=== PATIENT | male | born 1950 | race Caucasian/White ===

== ENCOUNTER 2022-12-26 18:32 | Inpatient (IN) | payer MEDICARE ==
[~2022-12-26] VITALS: Ht 165.1 cm; Wt 40.4 kg
[2022-12-26] MEDS ORDERED: IV NS 0.9% 1,000 ML BAG IV ONE ×2 (19:30→20:30)
[2022-12-26 20:09] LABS: SITE, VBG Other; VBG COHb 0.3 %; VBG MetHb 0.3 %; VBG O2Hb 51.2 %; VENT MODE, VBG ROOM AIR 21%
[2022-12-26 20:10] LABS: CALCIUM, SERUM 9.7 mg/dL (8.5-10.1); CARBON DIOXIDE 16 mmol/L (21-32); CHLORIDE 91 mmol/L (98-107); CREATININE 2.2 mg/dL (0.6-1.3); POTASSIUM 5.9 mmol/L (3.5-5.1); SODIUM SERUM 135 mmol/L (136-145); UREA NITROGEN, BLOOD 69 mg/dL (7-18)
[2022-12-26 20:13] LABS: GLUCOSE 1016 mg/dL (74-106)
[2022-12-26 20:26] LABS: ALANINE AMINOTRANSFERASE 13 U/L (12-78); ALBUMIN 3.1 g/dL (3.4-5.0); ALKALINE PHOSPHATASE 95 U/L (46-116); ASPARTATE AMINOTRANSFERASE 11 U/L (15-37); BILIRUBIN,DIRECT 0.3 mg/dL (0.0-0.2); BILIRUBIN,TOTAL 0.7 mg/dL (0.2-1.0); TOTAL PROTEIN, SERUM 7.5 g/dL (6.4-8.2)
[2022-12-26] MEDS ORDERED: INSULIN REGULAR, HUMAN 100 UNITS in IV NS 0.9% 100 ML IV PRN ×2 (20:30)
[2022-12-26] MEDS ORDERED: IV NS 0.9% 1,000 ML IV PRN (20:30)
[2022-12-26] MEDS ORDERED: INSULIN REGULAR, HUMAN 100 UNIT/ML 10 ML VIAL ONE (20:30)
[2022-12-26 20:42] LABS: BASOPHILS % (AUTO) 0.2 % (0.0-2.0); HEMATOCRIT 41 % (39-51); HEMOGLOBIN 12.4 g/dL (13.5-17.5); LYMPHOCYTES # (AUTO) 0.4 K/uL (0.8-4.8); LYMPHOCYTES % (AUTO) 2.2 % (20.0-44.0); MEAN CORPUSCULAR HGB CONC 31 g/dl (31.0-36.0); MEAN CORPUSCULAR VOLUME 94 fL (80-96); MONOCYTES # (AUTO) 1.4 K/uL (0.1-1.30); MONOCYTES % (AUTO) 7.5 % (2.0-12.0); NEUTROPHILS # (AUTO) 17.4 K/uL (1.8-8.9); NEUTROPHILS % (AUTO) 90.1 % (43.0-81.0); PLATELET COUNT (AUTO) 398 K/uL (150-450); RED BLOOD CELL COUNT(AUTO) 4.34 MIL/uL (4.5-6.0); WHITE BLOOD COUNT (AUTO) 19.3 K/uL (4.3-11.0)
[2022-12-26 21:41] LABS: CARBON DIOXIDE 14 mmol/L (21-32); CHLORIDE 96 mmol/L (98-107); CREATININE 2.1 mg/dL (0.6-1.3); MAGNESIUM 3.5 mg/dL (1.8-2.4); POTASSIUM 5.3 mmol/L (3.5-5.1); SODIUM SERUM 136 mmol/L (136-145); UREA NITROGEN, BLOOD 69 mg/dL (7-18)
[2022-12-26 22:05] LABS: GLUCOSE 962 mg/dL (74-106); PHOSPHORUS 8.8 mg/dL (2.5-4.9)
[2022-12-26] MEDS ORDERED: MAG HYDROX/AL HYDROX/SIMETH 30 ML UDC PO PRN (23:30)
[2022-12-26] MEDS ORDERED: ONDANSETRON HCL/PF 4 MG/2 ML VIAL IVP PRN (23:30)
[2022-12-26] MEDS ORDERED: IV 1/2NS 1000 ML 1,000 ML IV PRN (23:30)
[2022-12-26] MEDS ORDERED: Z GUARD REMEDY 4 OZ OINT TP PRN (23:30)
[2022-12-26] MEDS ORDERED: MAGNESIUM HYDROXIDE 30 ML UDC PO PRN (23:30)
[2022-12-26] MEDS ORDERED: ACETAMINOPHEN 325 MG TABLET PO PRN (23:30)
[2022-12-26] MEDS ORDERED: ZOLPIDEM TARTRATE 5 MG TABLET PO PRN (23:30)
[2022-12-26 23:59] LABS: BILIRUBIN,URINE NEGATIVE (NEGATIVE); COLOR,URINE YELLOW (YELLOW); LEUKOCYTE ESTERASE ,URINE NEGATIVE (NEGATIVE); NITRITE, URINE NEGATIVE (NEGATIVE); PROTEIN,URINE NEGATIVE (NEGATIVE); UGLUCOSE 3+ mg/dL (NEGATIVE); UROBILINOGEN,URINE 0.2 EU/dL (0.2)
[2022-12-26 23:59] LABS: CALCIUM, SERUM 8.8 mg/dL (8.5-10.1); CARBON DIOXIDE 18 mmol/L (21-32); CHLORIDE 105 mmol/L (98-107); CREATININE 2.1 mg/dL (0.6-1.3); MAGNESIUM 3.1 mg/dL (1.8-2.4); PHOSPHORUS 6.2 mg/dL (2.5-4.9); POTASSIUM 4.4 mmol/L (3.5-5.1); SODIUM SERUM 145 mmol/L (136-145); UREA NITROGEN, BLOOD 68 mg/dL (7-18)
[2022-12-27] VITALS (26 sets, daily range): BP systolic 81–129; BP diastolic 33–69
[2022-12-27] MEDS ORDERED: BLOOD SUGAR DIAGNOSTIC 1 EACH STRIP IN SCH
[2022-12-27 00:06] LABS: GLUCOSE 578 mg/dL (74-106)
[2022-12-27 00:07] LABS: WBC,URINE 0-2 /HPF (0-3)
[2022-12-27 00:08] LABS: BACTERIA,URINE Many /HPF (None Seen); SQUAMOUS EPITHELIAL CELL,UR Few /HPF (None Seen); YEAST,URINE Few /HPF (None Seen)
[2022-12-27] MEDS: ENOXAPARIN SODIUM 30 MG/0.3 ML DISP.SYRIN SQ SCH ×2 (00:11→21:21)
[2022-12-27] MEDS: BLOOD SUGAR DIAGNOSTIC 1 EACH STRIP IN SCH ×6 (00:15→06:22)
[2022-12-27] MEDS ORDERED: LEVOFLOXACIN 500 MG /D5W 100ML 500 MG in PREMIX 1 EA IV ONE (00:30)
[2022-12-27] MEDS ORDERED: INSULIN REGULAR, HUMAN 100 UNIT in IV NS 0.9% 99 ML IV PRN ×2 (00:30)
[2022-12-27] MEDS ORDERED: LEVOFLOXACIN 500 MG /D5W 100ML 100 ML IV ONE (00:33)
[2022-12-27 04:53] LABS: CALCIUM, SERUM 8.7 mg/dL (8.5-10.1); CARBON DIOXIDE 20 mmol/L (21-32); CHLORIDE 111 mmol/L (98-107); GLUCOSE 171 mg/dL (74-106); SODIUM SERUM 148 mmol/L (136-145)
[2022-12-27 04:54] LABS: CREATININE 1.9 mg/dL (0.6-1.3); UREA NITROGEN, BLOOD 68 mg/dL (7-18)
[2022-12-27 04:56] LABS: BASOPHILS # (AUTO) 0.2 K/uL (0.0-0.2); BASOPHILS % (AUTO) 1.1 % (0.0-2.0); HEMATOCRIT 33 % (39-51); LYMPHOCYTES # (AUTO) 0.6 K/uL (0.8-4.8); MEAN CORPUSCULAR HGB CONC 33 g/dl (31.0-36.0); MEAN CORPUSCULAR VOLUME 87 fL (80-96); MONOCYTES # (AUTO) 1.5 K/uL (0.1-1.30); MONOCYTES % (AUTO) 10.6 % (2.0-12.0); NEUTROPHILS # (AUTO) 12.1 K/uL (1.8-8.9); NEUTROPHILS % (AUTO) 84.3 % (43.0-81.0); PLATELET COUNT (AUTO) 348 K/uL (150-450); RED BLOOD CELL COUNT(AUTO) 3.77 MIL/uL (4.5-6.0); WHITE BLOOD COUNT (AUTO) 14.4 K/uL (4.3-11.0)
[2022-12-27 05:14] LABS: CALCIUM, SERUM 8.7 mg/dL (8.5-10.1); CARBON DIOXIDE 26 mmol/L (21-32); CHLORIDE 112 mmol/L (98-107); CREATININE 1.7 mg/dL (0.6-1.3); GLUCOSE 129 mg/dL (74-106); MAGNESIUM 2.7 mg/dL (1.8-2.4); PHOSPHORUS 4.2 mg/dL (2.5-4.9); POTASSIUM 4.4 mmol/L (3.5-5.1); SODIUM SERUM 146 mmol/L (136-145); UREA NITROGEN, BLOOD 71 mg/dL (7-18)
[2022-12-27 05:25] LABS: THYROID STIMULATING HORMONE 0.455 uIU/mL (0.358-3.74)
[2022-12-27] MEDS ORDERED: IV D5/0.45 NACL 1,000 ML IV PRN (05:30)
[2022-12-27] MEDS ORDERED: DEXTROSE 50%-WATER 50 ML DISP.SYRIN IV PRN (07:00)
[2022-12-27] MEDS ORDERED: *INSULIN REGULAR(HUMULIN R)HUM 100 UNIT/ML VIAL SQ PRN (07:00)
[2022-12-27] MEDS ORDERED: INSULIN GLARGINE, 100 UNIT/ML CARTRIDGE SQ ONE (07:30)
[2022-12-27] MEDS: BLOOD SUGAR DIAGNOSTIC 1 EACH STRIP VI SCH ×4 (08:53→22:26)
[2022-12-27] MEDS: CLOTRIMAZOLE 1% 15 GM TUBE TP SCH ×2 (08:59→17:32)
[2022-12-27] MEDS: INSULIN REGULAR, HUMAN 100 UNIT/ML 3 ML VIAL SQ PRN ×3 (09:00→16:46)
[2022-12-27] MEDS: PANTOPRAZOLE 40 MG TABLET.DR PO SCH (09:10)
[2022-12-27] MEDS: IV NS 0.9% 1,000 ML IV SCH (11:47)
[2022-12-27] MEDS: GLUCERNA SHAKE 237 ML CAN PO SCH ×2 (12:41→17:31)
[2022-12-27] MEDS: PROSOURCE / PROSTAT (PYXIS) 30 ML UDC PO SCH (17:31)
[2022-12-27] MEDS ORDERED: LEVOFLOXACIN 250 MG /D5W 50 ML 50 ML IV ONE (23:36)
[2022-12-27] MEDS: LEVOFLOXACIN 250 MG /D5W 50 ML 250 MG in PREMIX 1 EA IV SCH (23:37)
[2022-12-28] MEDS: IV NS 0.9% 1,000 ML IV SCH ×2 (00:48→15:25)
[2022-12-28 02:00] VITALS: BP 114/62
[2022-12-28 02:24] LABS: CALCIUM, SERUM 8.4 mg/dL (8.5-10.1); CARBON DIOXIDE 26 mmol/L (21-32); CHLORIDE 114 mmol/L (98-107); CREATININE 0.9 mg/dL (0.6-1.3); GLUCOSE 137 mg/dL (74-106); POTASSIUM 3.3 mmol/L (3.5-5.1); SODIUM SERUM 145 mmol/L (136-145); UREA NITROGEN, BLOOD 47 mg/dL (7-18)
[2022-12-28 04:00] VITALS: BP 120/62
[2022-12-28 07:06] LABS: BASOPHILS % (AUTO) 0.2 % (0.0-2.0); EOSINOPHILS % (AUTO) 0.2 % (0.0-6.0); HEMATOCRIT 33 % (39-51); LYMPHOCYTES # (AUTO) 0.5 K/uL (0.8-4.8); LYMPHOCYTES % (AUTO) 3.5 % (20.0-44.0); MEAN CORPUSCULAR HGB CONC 33 g/dl (31.0-36.0); MEAN CORPUSCULAR VOLUME 87 fL (80-96); MONOCYTES % (AUTO) 6.6 % (2.0-12.0); NEUTROPHILS # (AUTO) 13.5 K/uL (1.8-8.9); NEUTROPHILS % (AUTO) 89.5 % (43.0-81.0); PLATELET COUNT (AUTO) 273 K/uL (150-450); RED BLOOD CELL COUNT(AUTO) 3.82 MIL/uL (4.5-6.0); WHITE BLOOD COUNT (AUTO) 15.1 K/uL (4.3-11.0)
[2022-12-28 07:12] LABS: MAGNESIUM 2.2 mg/dL (1.8-2.4); PHOSPHORUS 2.5 mg/dL (2.5-4.9)
[2022-12-28] MEDS ORDERED: POTASSIUM CHLORIDE 20 MEQ TAB.PRT.SR PO ONE (07:30)
[2022-12-28 08:00] VITALS: BP 146/81
[2022-12-28] MEDS: PROSOURCE / PROSTAT (PYXIS) 30 ML UDC PO SCH ×2 (09:33→16:59)
[2022-12-28] MEDS: PANTOPRAZOLE 40 MG TABLET.DR PO SCH (09:33)
[2022-12-28] MEDS: BLOOD SUGAR DIAGNOSTIC 1 EACH STRIP VI SCH ×4 (09:33→21:38)
[2022-12-28] MEDS: ARGININE/GLUTAMINE/CALCIUM BMB 1 EACH POWD.PACK PO SCH (09:33)
[2022-12-28] MEDS: METFORMIN 500 MG TABLET PO SCH ×2 (09:34→16:59)
[2022-12-28] MEDS: GLUCERNA SHAKE 237 ML CAN PO SCH ×3 (09:36→17:47)
[2022-12-28] MEDS: CLOTRIMAZOLE 1% 15 GM TUBE TP SCH ×2 (09:36→17:47)
[2022-12-28] MEDS: INSULIN REGULAR, HUMAN 100 UNIT/ML 3 ML VIAL SQ PRN ×3 (11:47→21:36)
[2022-12-28 12:00] VITALS: BP 140/53
[2022-12-28 16:00] VITALS: BP 110/60
[2022-12-28 20:00] VITALS: BP 123/64
[2022-12-28] MEDS: ENOXAPARIN SODIUM 30 MG/0.3 ML DISP.SYRIN SQ SCH (21:36)
[2022-12-28] MEDS: LEVOFLOXACIN 250 MG /D5W 50 ML 250 MG in PREMIX 1 EA IV SCH (23:48)
[2022-12-29] VITALS: BP 112/72
[2022-12-29 00:11] LABS: BASOPHILS % (MANUAL) 0 % (0.0-2.0); EOSINOPHILS % (MANUAL) 0 % (0-4); LYMPHOCYTES % (MANUAL) 5 % (16-48); MONOCYTES % (MANUAL) 9 % (0-11.0); NEUTROPHILS % (MANUAL) 86 (42-76)
[2022-12-29 02:20] LABS: CALCIUM, SERUM 7.3 mg/dL (8.5-10.1); CARBON DIOXIDE 29 mmol/L (21-32); CHLORIDE 106 mmol/L (98-107); GLUCOSE 198 mg/dL (74-106); POTASSIUM 3.5 mmol/L (3.5-5.1); SODIUM SERUM 142 mmol/L (136-145)
[2022-12-29 02:21] LABS: UREA NITROGEN, BLOOD 81 mg/dL (7-18)
[2022-12-29] MEDS: IV NS 0.9% 1,000 ML IV SCH ×2 (03:34→17:40)
[2022-12-29 04:00] VITALS: BP 131/72
[2022-12-29 07:41] LABS: BASOPHILS # (AUTO) 0.2 K/uL (0.0-0.2); BASOPHILS % (AUTO) 1.2 % (0.0-2.0); EOSINOPHILS % (AUTO) 0.2 % (0.0-6.0); HEMATOCRIT 31 % (39-51); HEMOGLOBIN 10.1 g/dL (13.5-17.5); LYMPHOCYTES # (AUTO) 0.7 K/uL (0.8-4.8); LYMPHOCYTES % (AUTO) 4.3 % (20.0-44.0); MEAN CORPUSCULAR HGB CONC 33 g/dl (31.0-36.0); MEAN CORPUSCULAR VOLUME 88 fL (80-96); MONOCYTES # (AUTO) 0.8 K/uL (0.1-1.30); MONOCYTES % (AUTO) 5.5 % (2.0-12.0); NEUTROPHILS # (AUTO) 13.4 K/uL (1.8-8.9); NEUTROPHILS % (AUTO) 88.8 % (43.0-81.0); PLATELET COUNT (AUTO) 208 K/uL (150-450); RED BLOOD CELL COUNT(AUTO) 3.52 MIL/uL (4.5-6.0); WHITE BLOOD COUNT (AUTO) 15.2 K/uL (4.3-11.0)
[2022-12-29 07:55] LABS: CALCIUM, SERUM 8.3 mg/dL (8.5-10.1); CARBON DIOXIDE 27 mmol/L (21-32); CHLORIDE 111 mmol/L (98-107); CREATININE 0.8 mg/dL (0.6-1.3); GLUCOSE 217 mg/dL (74-106); MAGNESIUM 1.9 mg/dL (1.8-2.4); PHOSPHORUS 1.9 mg/dL (2.5-4.9); POTASSIUM 3.4 mmol/L (3.5-5.1); SODIUM SERUM 145 mmol/L (136-145); UREA NITROGEN, BLOOD 30 mg/dL (7-18)
[2022-12-29 08:00] VITALS: BP 128/70
[2022-12-29] MEDS: GLUCERNA SHAKE 237 ML CAN PO SCH ×3 (08:52→17:38)
[2022-12-29] MEDS: PROSOURCE / PROSTAT (PYXIS) 30 ML UDC PO SCH ×2 (08:52→17:38)
[2022-12-29] MEDS: PANTOPRAZOLE 40 MG TABLET.DR PO SCH (08:52)
[2022-12-29] MEDS: BLOOD SUGAR DIAGNOSTIC 1 EACH STRIP VI SCH ×4 (08:52→22:40)
[2022-12-29] MEDS: CLOTRIMAZOLE 1% 15 GM TUBE TP SCH ×2 (08:53→17:38)
[2022-12-29] MEDS: ARGININE/GLUTAMINE/CALCIUM BMB 1 EACH POWD.PACK PO SCH (09:40)
[2022-12-29] MEDS: INSULIN REGULAR, HUMAN 100 UNIT/ML 3 ML VIAL SQ PRN ×3 (09:42→17:41)
[2022-12-29 12:00] VITALS: BP 111/91
[2022-12-29] MEDS ORDERED: POTASSIUM CHLORIDE 20 MEQ TAB.PRT.SR PO SCH (12:30)
[2022-12-29 16:00] VITALS: BP 103/48
[2022-12-29] MEDS ORDERED: K PHOS NEUTRAL 250 MG TABLET PO ONE (17:00)
[2022-12-29] MEDS: METFORMIN 500 MG TABLET PO SCH (17:38)
[2022-12-29 20:00] VITALS: BP 98/50
[2022-12-29] MEDS: ENOXAPARIN SODIUM 30 MG/0.3 ML DISP.SYRIN SQ SCH (21:29)
[2022-12-29] MEDS: LEVOFLOXACIN 250 MG /D5W 50 ML 250 MG in PREMIX 1 EA IV SCH (23:00)
[2022-12-30] VITALS: BP 114/67
[2022-12-30 02:38] LABS: CALCIUM, SERUM 8.2 mg/dL (8.5-10.1); CARBON DIOXIDE 28 mmol/L (21-32); CHLORIDE 112 mmol/L (98-107); GLUCOSE 253 mg/dL (74-106); POTASSIUM 3.4 mmol/L (3.5-5.1); SODIUM SERUM 143 mmol/L (136-145); UREA NITROGEN, BLOOD 35 mg/dL (7-18)
[2022-12-30 04:00] VITALS: BP 112/70
[2022-12-30] MEDS: IV NS 0.9% 1,000 ML IV SCH (07:02)
[2022-12-30 07:09] LABS: BASOPHILS % (AUTO) 0.2 % (0.0-2.0); EOSINOPHILS % (AUTO) 0.4 % (0.0-6.0); HEMATOCRIT 35 % (39-51); HEMOGLOBIN 11.2 g/dL (13.5-17.5); LYMPHOCYTES # (AUTO) 0.7 K/uL (0.8-4.8); LYMPHOCYTES % (AUTO) 4.6 % (20.0-44.0); MEAN CORPUSCULAR HGB CONC 32 g/dl (31.0-36.0); MEAN CORPUSCULAR VOLUME 88 fL (80-96); MONOCYTES # (AUTO) 1.1 K/uL (0.1-1.30); MONOCYTES % (AUTO) 7.2 % (2.0-12.0); NEUTROPHILS # (AUTO) 13.2 K/uL (1.8-8.9); NEUTROPHILS % (AUTO) 87.6 % (43.0-81.0); PLATELET COUNT (AUTO) 231 K/uL (150-450); RED BLOOD CELL COUNT(AUTO) 3.93 MIL/uL (4.5-6.0); WHITE BLOOD COUNT (AUTO) 15.1 K/uL (4.3-11.0)
[2022-12-30] MEDS: BLOOD SUGAR DIAGNOSTIC 1 EACH STRIP VI SCH ×2 (07:37→11:48)
[2022-12-30] MEDS: INSULIN REGULAR, HUMAN 100 UNIT/ML 3 ML VIAL SQ PRN ×2 (07:40→11:50)
[2022-12-30] MEDS: PANTOPRAZOLE 40 MG TABLET.DR PO SCH (07:42)
[2022-12-30 07:45] LABS: PHOSPHORUS 2.1 mg/dL (2.5-4.9)
[2022-12-30] MEDS: GLUCERNA SHAKE 237 ML CAN PO SCH ×2 (07:49→12:42)
[2022-12-30 08:00] VITALS: BP 117/70
[2022-12-30] MEDS: METFORMIN 500 MG TABLET PO SCH (08:59)
[2022-12-30] MEDS: CLOTRIMAZOLE 1% 15 GM TUBE TP SCH (09:00)
[2022-12-30] MEDS: PROSOURCE / PROSTAT (PYXIS) 30 ML UDC PO SCH (09:00)
[2022-12-30] MEDS: POTASSIUM PHOSPHATE MM 7.5 MMOL in IV NS 0.9% 100 ML IV SCH ×2 (09:08→12:13)
[2022-12-30] MEDS: ARGININE/GLUTAMINE/CALCIUM BMB 1 EACH POWD.PACK PO SCH (09:56)
[2022-12-30] MEDS ORDERED: LEVO500T90 PO (11:45)
[2022-12-30] MEDS ORDERED: INSU100V28 SQ (11:45)
[2022-12-30 12:00] VITALS: BP 125/75
== END 2022-12-30 15:24 | DRG 637 ==
LOC: ER 18:35 → ICU 21:11 → TELE1 12-27 13:26
PROVIDERS: ADMIT Student in an Organized Health Care Education/Training Program; ATTEND Internal Medicine
PROC: 05H533Z Insertion of Infusion Device into Right Subclavian Vein, Percutaneous Approach (ICD-10-PCS; principal; 2022-12-27)
PROC: B546ZZA Ultrasonography of Right Subclavian Vein, Guidance (ICD-10-PCS; 2022-12-27)
DX: E11.10 Type 2 diabetes mellitus with ketoacidosis without coma (principal); A41.9 Sepsis, unspecified organism; N17.0 Acute kidney failure with tubular necrosis; E44.0 Moderate protein-calorie malnutrition; L03.115 Cellulitis of right lower limb; E87.20 Acidosis, unspecified; Z68.1 Body mass index [BMI] 19.9 or less, adult; E87.1 Hypo-osmolality and hyponatremia; E87.5 Hyperkalemia; D64.9 Anemia, unspecified; E87.6 Hypokalemia; R53.1 Weakness; S90.01XA Contusion of right ankle, initial encounter; X58.XXXA Exposure to other specified factors, initial encounter; Y93.9 Activity, unspecified; Y92.009 Unspecified place in unspecified non-institutional (private) residence as the place of occurrence of the external cause
CPT/HCPCS: 36410; 36415; 71045-TC; 76770-TC; 80048-TC; 80076-TC; 81001; 82803-TC; 82962-TC; 83605-TC; 83735-TC; 84100-TC; 84443-TC; 85025-TC; 87081-TC; 87086-TC; 92526; 92611-TC; 97112-TC; 97116-TC; 97530-TC; A4216; A4223; G0378; J1650; J1815; J1956; J3490; J7030

== ENCOUNTER 2023-04-20 20:57 | Inpatient (IN) | payer MEDICARE ==
[~2023-04-20] VITALS: Ht 167.6 cm; Wt 49.0 kg
[~2023-04-20 20:57] MED LIST: INSU100V28 SQ; LEVO500T90 PO
--- NOTE | 2023-04-20 21:07 | NUR ---
[id number] FROM [facility] C/O AMS X1 DAY. BS CHECK READING "HI". UPON TRIAGE SATTING 90% 10LPM NRB. PLACED ON BED, VITALS CHECKED. IVF INFUSING TO PERIPHERAL IV TO LEFT WRIST UPON ARRIVAL.
--- NOTE | 2023-04-20 21:15 | NUR ---
20GA TO RIGHT FOREARM ESTABLISHED; BLOOD CULTURE COLLECTED
--- NOTE | 2023-04-20 21:35 | NUR ---
URINE COLLECTED, SENT TO LAB
--- NOTE | 2023-04-20 21:45 | NUR ---
GLUE MACHINE OPERATOR AT BEDSIDE
--- NOTE | 2023-04-20 21:52 | NUR ---
PATIENT TAKEN TO CT W/ RT & TECH
[2023-04-20 22:02] LABS: BASOPHILS % (AUTO) 0.1 % (0.0-2.0); HEMATOCRIT 32 % (39-51); HEMOGLOBIN 9.8 g/dL (13.5-17.5); LYMPHOCYTES # (AUTO) 0.5 K/uL (0.8-4.8); LYMPHOCYTES % (AUTO) 3.4 % (20.0-44.0); MEAN CORPUSCULAR HGB CONC 31 g/dl (31.0-36.0); MEAN CORPUSCULAR VOLUME 86 fL (80-96); MONOCYTES # (AUTO) 0.5 K/uL (0.1-1.30); MONOCYTES % (AUTO) 3.5 % (2.0-12.0); NEUTROPHILS # (AUTO) 14.5 K/uL (1.8-8.9); PLATELET COUNT (AUTO) 340 K/uL (150-450); RED BLOOD CELL COUNT(AUTO) 3.67 MIL/uL (4.5-6.0); WHITE BLOOD COUNT (AUTO) 15.6 K/uL (4.3-11.0)
[2023-04-20 22:11] LABS: BILIRUBIN,URINE 1+ (NEGATIVE); COLOR,URINE YELLOW (YELLOW); LEUKOCYTE ESTERASE ,URINE 3+ (NEGATIVE); NITRITE, URINE NEGATIVE (NEGATIVE); PROTEIN,URINE 2+ mg/dl (NEGATIVE); UGLUCOSE TRACE mg/dL (NEGATIVE)
[2023-04-20 22:37] LABS: ALANINE AMINOTRANSFERASE 13 U/L (12-78); ALBUMIN 1.6 g/dL (3.4-5.0); ALKALINE PHOSPHATASE 55 U/L (46-116); ASPARTATE AMINOTRANSFERASE 21 U/L (15-37); BILIRUBIN,DIRECT 0.2 mg/dL (0.0-0.2); CREATININE 2.8 mg/dL (0.6-1.3); TOTAL PROTEIN, SERUM 7.5 g/dL (6.4-8.2)
--- NOTE | 2023-04-20 22:45 | NUR ---
COVID, MRSA SWABS DONE, SENT TO LAB
--- NOTE | 2023-04-20 22:46 | NUR ---
POC [id number]
[2023-04-20 22:50] LABS: BACTERIA,URINE Rare /HPF (None Seen); SQUAMOUS EPITHELIAL CELL,UR Rare /HPF (None Seen); WBC,URINE 81-100 /HPF (0-3)
[2023-04-20 22:51] LABS: YEAST,URINE Moderate /HPF (None Seen)
[2023-04-20] MEDS ORDERED: AZITHROMYCIN 500 MG in IV D5W 250 ML IV ONE (23:00)
[2023-04-20] MEDS ORDERED: CEFTRIAXONE 1GM BAG (ER ONLY) 50 ML IV ONE (23:00)
[2023-04-20] MEDS ORDERED: INSULIN REGULAR, HUMAN 100 UNIT/ML 10 ML VIAL SQ ONE (23:00)
[2023-04-20] MEDS ORDERED: INSULIN REGULAR, HUMAN 100 UNIT/ML 10 ML VIAL ONE (23:00)
[2023-04-20] MEDS ORDERED: IV NS 0.9% 1,000 ML BAG IV ONE (23:00)
[2023-04-20] MEDS ORDERED: AZITHROMYCIN 500 MG VIAL ONE (23:00)
[2023-04-20] MEDS ORDERED: CEFTRIAXONE 1GM BAG (ER ONLY) 1 GM/50 ML PIGGYBACK IV ONE (23:00)
--- NOTE | 2023-04-20 23:07 | NUR ---
TROPONIN [address] JACOME DO AWARE.
[2023-04-20 23:19] LABS: ABG BASE EXCESS -2.9 mmol/L; ABG PCO2 31.6 mmHg (35.0-45.0); ABG PH 7.432 (7.350-7.450); ABG PO2 123.1 mmHg (75.0-100.0); COHb 0.3 % (0.5-1.5); MetHb 0.1 % (0.0-1.5); O2Hb 97.8 % (94.0-97.0); SITE, ABG Left Brachial
[2023-04-20 23:25] LABS: BILIRUBIN,TOTAL 0.4 mg/dL (0.2-1.0); CALCIUM, SERUM 8.7 mg/dL (8.5-10.1); CARBON DIOXIDE 22 mmol/L (21-32); CHLORIDE 102 mmol/L (98-107); POTASSIUM 5.3 mmol/L (3.5-5.1); SODIUM SERUM 137 mmol/L (136-145)
[2023-04-20 23:26] LABS: UREA NITROGEN, BLOOD 80 mg/dL (7-18)
[2023-04-20 23:27] LABS: GLUCOSE 740 mg/dL (74-106)
--- NOTE | 2023-04-20 23:27 | NUR ---
GLUCOSE 740 DR JACOME DO AWARE
[2023-04-20] MEDS ORDERED: ASPIRIN 300 MG/SUPP.RECT RC ONE (23:30)
[2023-04-21] VITALS (21 sets, daily range): BP systolic 94–131; BP diastolic 52–77; TEMP 97.1–98.5
[2023-04-21] MEDS ORDERED: ASPIRIN 300 MG/SUPP.RECT RC ONE (00:56)
[2023-04-21] MEDS ORDERED: DEXTROSE 50%-WATER 50 ML DISP.SYRIN IV PRN ×2 (01:00→09:00)
[2023-04-21] MEDS ORDERED: HYDROCODONE/APAP 5/325MG TABLET PO PRN (01:00)
[2023-04-21] MEDS ORDERED: MAG HYDROX/AL HYDROX/SIMETH 30 ML UDC PO PRN (01:00)
[2023-04-21] MEDS ORDERED: AZITHROMYCIN 500 MG in IV D5W 250 ML IV SCH ×3 (01:00→21:00)
[2023-04-21] MEDS ORDERED: Z GUARD REMEDY 4 OZ OINT TP PRN (01:00)
[2023-04-21] MEDS ORDERED: MORPHINE SULFATE INJ 2 MG/ML DISP.SYRIN IV PRN (01:00)
[2023-04-21] MEDS ORDERED: INSULIN REGULAR, HUMAN 100 UNIT/ML 3 ML VIAL SQ PRN (01:00)
[2023-04-21] MEDS ORDERED: *INSULIN REGULAR(HUMULIN R)HUM 100 UNIT/ML VIAL SQ PRN (01:00)
[2023-04-21] MEDS ORDERED: MAGNESIUM HYDROXIDE 30 ML UDC PO PRN (01:00)
[2023-04-21] MEDS ORDERED: ONDANSETRON HCL/PF 4 MG/2 ML VIAL IVP PRN (01:00)
--- NOTE | 2023-04-21 01:19 | NUR ---
US TECH AT PT'S BEDSIDE
--- NOTE | 2023-04-21 01:50 | NUR ---
REPORT GIVEN TO KAY BEVERLY
[2023-04-21] MEDS ORDERED: PHENYLEPHRINE 50 MG in IV NS 0.9% 245 ML IV PRN (03:00)
[2023-04-21] MEDS: IV NS 0.9% 1,000 ML IV PRN ×3 (04:27→22:35)
--- NOTE | 2023-04-21 04:29 | NUR ---
ADMISSION. RECEIVED THE PT FROM ER VIA GURNEY. PT IS AWAKE, DOES NOT FOLLOW COMMANDS, OXYGEN NON REBREATHER, SAT 98%, NO ACUTE DISTRESS NOTED, LIFE SKILLS CONSULTANT SHOWING S TACH, HOB ELEVATED. IV RT AND LT HAND. IVF NS 100 ML/H. FC PATENT. SACRAL WOUND, DIONI HEEL DTI NOTED. PICTURE TAKEN. WOUND CONSULTATION ORDERED
[2023-04-21] MEDS ORDERED: BLOOD SUGAR DIAGNOSTIC 1 EACH STRIP VI SCH (07:30)
--- NOTE | 2023-04-21 07:30 | NUR ---
FOOD AND BEVERAGE ASSISTANT MANAGER NOTE Patient is resting in bed. GCS E3V1M5, bilateral pupils 3mm PEARLA. tumbler plater showed ST HR 110/min, MAP>65mmHg with SBP~110mmHg. SpO2 100% with 100% oxygen. Will try titrate down oxygen use. Villagran is in-situ, but there's no urine output. Afebrile. Bilateral arms IV sites are dry and intact, with NS running at 100mL/hr via right FA. Will keep monitoring and care.
[2023-04-21] MEDS: ASPIRIN 81 MG TAB.CHEW PO SCH (08:46)
[2023-04-21] MEDS: PANTOPRAZOLE 40 MG TABLET.DR PO SCH (08:46)
[2023-04-21] MEDS: CEFEPIME 1 GM in IV D5W 50 ML IV SCH ×2 (08:48→20:30)
[2023-04-21] MEDS: HEPARIN SODIUM, PORCINE 5000 UNITS/1 ML VIAL SQ SCH ×2 (08:53→21:10)
--- NOTE | 2023-04-21 09:01 | NUR ---
RAW CHEESE WORKER NOTE - keep patient NPO As patient is not alert, will keep patient NPO.
[2023-04-21] MEDS: INSULIN REGULAR, HUMAN 100 UNIT/ML 3 ML VIAL SQ PRN ×2 (09:10→12:11)
[2023-04-21 09:12] LABS: ABG BASE EXCESS -1.5 mmol/L; ABG OXYGEN SATURATION 96.4 % (92.0-98.5); ABG PCO2 35.7 mmHg (35.0-45.0); ABG PH 7.419 (7.350-7.450); ABG PO2 88.6 mmHg (75.0-100.0); AaDO2 191.6 mmHg; COHb 0.1 % (0.5-1.5); MetHb 0.3 % (0.0-1.5); SITE, ABG Right Radial; VENT MODE, BG simple mask
[2023-04-21] MEDS ORDERED: VANCOMYCIN 1 GM in IV D5W 250 ML IV ONE (10:00)
[2023-04-21] MEDS: IV NS 0.9% 250 ML IV PRN (11:32)
[2023-04-21] MEDS: BLOOD SUGAR DIAGNOSTIC 1 EACH STRIP IN SCH ×3 (12:07→23:04)
[2023-04-21 12:56] LABS: CALCIUM, SERUM 8.2 mg/dL (8.5-10.1); CARBON DIOXIDE 22 mmol/L (21-32); CHLORIDE 109 mmol/L (98-107); CREATININE 2.4 mg/dL (0.6-1.3); GLUCOSE 343 mg/dL (74-106); POTASSIUM 4.4 mmol/L (3.5-5.1); SODIUM SERUM 143 mmol/L (136-145)
[2023-04-21 13:05] LABS: UREA NITROGEN, BLOOD 80 mg/dL (7-18)
[2023-04-21] MEDS: IPRATROPIUM NEB FS 0.5 MG/2.5 ML AMPUL.NEB NEB SCH ×2 (14:09→19:40)
[2023-04-21] MEDS: ALBUTEROL HALF STRENGTH 1.25 MG/3 ML VIAL.NEB NEB SCH ×2 (14:09→19:40)
--- NOTE | 2023-04-21 15:40 | NUR ---
ROUTE SPECIALIST NOTE - change of code status Staff from assisted living [facility] contacted us this morning and provided information about POA and patient's baseline condition. Condition of patient briefly updated. Patient's POA Willis([phone]) contacted us. Clinical condition updated via the phone. Clarified with Willis about patient's code status and would switch to DNI/DNR from full code. Done as ordered.
[2023-04-21 18:28] LABS: CALCIUM, SERUM 8.2 mg/dL (8.5-10.1); CARBON DIOXIDE 19 mmol/L (21-32); CHLORIDE 112 mmol/L (98-107); CREATININE 2.3 mg/dL (0.6-1.3); GLUCOSE 133 mg/dL (74-106); POTASSIUM 4.2 mmol/L (3.5-5.1); SODIUM SERUM 141 mmol/L (136-145); UREA NITROGEN, BLOOD 78 mg/dL (7-18)
--- NOTE | 2023-04-21 23:20 | NUR ---
MAILROOM MESSENGER PT NOTED WARM TO TOUCH; TEMP 100.8; RCD ORDER FOR TYLENOL SUPP. COOLING MEASURES INITIATED.
[2023-04-21] MEDS ORDERED: ACETAMINOPHEN 650 MG/SUPP.RECT RC PRN (23:30)
[2023-04-22] VITALS (14 sets, daily range): BP systolic 97–146; BP diastolic 54–75; TEMP 97.7–100.9
[2023-04-22 05:02] LABS: BASOPHILS # (AUTO) 0.1 K/uL (0.0-0.2); BASOPHILS % (AUTO) 0.6 % (0.0-2.0); EOSINOPHILS % (AUTO) 0.8 % (0.0-6.0); HEMATOCRIT 28 % (39-51); HEMOGLOBIN 8.7 g/dL (13.5-17.5); LYMPHOCYTES # (AUTO) 0.5 K/uL (0.8-4.8); LYMPHOCYTES % (AUTO) 3.4 % (20.0-44.0); MEAN CORPUSCULAR HGB CONC 31 g/dl (31.0-36.0); MEAN CORPUSCULAR VOLUME 85 fL (80-96); MONOCYTES # (AUTO) 0.5 K/uL (0.1-1.30); MONOCYTES % (AUTO) 3.3 % (2.0-12.0); NEUTROPHILS # (AUTO) 14.5 K/uL (1.8-8.9); NEUTROPHILS % (AUTO) 91.9 % (43.0-81.0); PLATELET COUNT (AUTO) 263 K/uL (150-450); RED BLOOD CELL COUNT(AUTO) 3.26 MIL/uL (4.5-6.0); WHITE BLOOD COUNT (AUTO) 15.8 K/uL (4.3-11.0)
[2023-04-22] MEDS: BLOOD SUGAR DIAGNOSTIC 1 EACH STRIP IN SCH ×3 (05:12→18:09)
[2023-04-22 05:38] LABS: CALCIUM, SERUM 7.8 mg/dL (8.5-10.1); CARBON DIOXIDE 21 mmol/L (21-32); CHLORIDE 114 mmol/L (98-107); CREATININE 2.1 mg/dL (0.6-1.3); GLUCOSE 166 mg/dL (74-106); MAGNESIUM 1.4 mg/dL (1.8-2.4); POTASSIUM 4.2 mmol/L (3.5-5.1); SODIUM SERUM 146 mmol/L (136-145); UREA NITROGEN, BLOOD 72 mg/dL (7-18)
[2023-04-22] MEDS: INSULIN REGULAR, HUMAN 100 UNIT/ML 3 ML VIAL SQ PRN ×3 (05:51→18:09)
[2023-04-22] MEDS: PANTOPRAZOLE 40 MG TABLET.DR PO SCH (07:30)
[2023-04-22] MEDS: IPRATROPIUM NEB FS 0.5 MG/2.5 ML AMPUL.NEB NEB SCH ×3 (08:15→20:29)
[2023-04-22] MEDS: ALBUTEROL HALF STRENGTH 1.25 MG/3 ML VIAL.NEB NEB SCH ×3 (08:15→20:29)
[2023-04-22] MEDS: ASPIRIN 81 MG TAB.CHEW PO SCH (08:19)
[2023-04-22] MEDS: CEFEPIME 1 GM in IV D5W 50 ML IV SCH ×2 (09:25→21:30)
[2023-04-22] MEDS: HEPARIN SODIUM, PORCINE 5000 UNITS/1 ML VIAL SQ SCH ×2 (09:26→21:31)
[2023-04-22] MEDS: IV NS 0.9% 1,000 ML IV PRN ×2 (09:29→21:44)
[2023-04-22] MEDS ORDERED: VANCOMYCIN 500 MG in IV D5W 100 ML IV SCH ×2 (10:00→22:00)
--- NOTE | 2023-04-22 12:15 | NUR ---
RN NOTE PT RECEIVED FROM ICU AND IS STABLE AT THIS TIME. ON RA TOLERATING WELL WITH O2 SATS 99%. PT IS A/OX1 AND OBTUNDED AND NPO AT THIS TIME DUE TO AMS. IV ACCESS R FA INFUSING WITH NS@100ML/HR. BED IS LOCKED IN LOWEST POSITION AND ALL HOSPITAL SAFETY MEASURES ARE IN PLACE WILL CONTINUE TO MONITOR THIS SHIFT.
--- NOTE | 2023-04-22 12:30 | NUR ---
RN CLOSING NOTES PT LOOKS COMFORTABLE, ALL DUE MEDS GIVEN. PT BEING TRANSFERRED TO TELEMETRY STATUS IN ROOM 120. REPORT GIVEN TO NATASHA BEVERLY FOR CONTINUATION OF CARE.
--- NOTE | 2023-04-22 13:45 | NUR ---
RN NOTE: MRI CONSENT THIS NURSE CALLED PRAFUL LUZ VIA TELEPHONE AND RECEIVED CONSENT USING 2 RN VERIFICATION WITH CHRISSY Thurston RN. CONSENT HAS BEEN PLACED IN CHART ALONG WITH MRI CHECK LIST.
--- NOTE | 2023-04-22 18:10 | NUR ---
RN NOTE: ACCUCHECK PT IS NPO AT THIS TIME AND WILL HOLD INSULIN. BS 157
--- NOTE | 2023-04-22 18:50 | NUR ---
RN CLOSING PT IS ON RA TOLERATING WELL WITH O2 SATS 99%. PT IS A/OX1 AND OBTUNDED AND NPO AT THIS TIME DUE TO AMS. IV ACCESS R FA INFUSING WITH NS@100ML/HR. BED IS LOCKED IN LOWEST POSITION AND ALL HOSPITAL SAFETY MEASURES ARE IN PLACE WILL ENDORSE TO EDITOR IN CHIEF NURSE FOR CHRISTINA.
--- NOTE | 2023-04-22 19:20 | NUR ---
RN OPENING NOTE RECEIVED PATIENT IN BED AWAKE ALERT X0.OBTUNDED, PATIENT IS ON RA NO SIGN OF UNLABORED NO SOB NOTED, NO SIGN SYMPTOM OF DISTRESS NO FEVER. IV ACCESS ON RFA 20G INTACT RUNNING OF NS @100 ML/HR. SINUS TACH RHYTHM. NUNN CATH IN PLACE INTACT. BED IN LOCK CALL LIGHT IN REACH ALL SAFETY MEASURE SECURE,
[2023-04-23] VITALS (17 sets, daily range): BP systolic 112–137; BP diastolic 47–82; TEMP 96.5–98.4
[2023-04-23] MEDS: BLOOD SUGAR DIAGNOSTIC 1 EACH STRIP IN SCH ×5 (00:36→23:29)
[2023-04-23] MEDS ORDERED: FLUCONAZOLE IN NS 100 ML IV ONE (00:39)
[2023-04-23] MEDS: INSULIN REGULAR, HUMAN 100 UNIT/ML 3 ML VIAL SQ PRN ×5 (00:43→23:31)
[2023-04-23] MEDS: FLUCONAZOLE IN NS 100 MG in PREMIX 1 EA IV SCH ×4 (01:37→22:15)
[2023-04-23 06:34] LABS: BASOPHILS # (AUTO) 0.1 K/uL (0.0-0.2); BASOPHILS % (AUTO) 0.5 % (0.0-2.0); EOSINOPHILS % (AUTO) 0.1 % (0.0-6.0); HEMATOCRIT 28 % (39-51); HEMOGLOBIN 8.9 g/dL (13.5-17.5); LYMPHOCYTES # (AUTO) 0.3 K/uL (0.8-4.8); LYMPHOCYTES % (AUTO) 2.2 % (20.0-44.0); MEAN CORPUSCULAR HGB CONC 32 g/dl (31.0-36.0); MEAN CORPUSCULAR VOLUME 85 fL (80-96); MONOCYTES # (AUTO) 0.5 K/uL (0.1-1.30); MONOCYTES % (AUTO) 3.7 % (2.0-12.0); NEUTROPHILS % (AUTO) 93.5 % (43.0-81.0); PLATELET COUNT (AUTO) 281 K/uL (150-450); RED BLOOD CELL COUNT(AUTO) 3.28 MIL/uL (4.5-6.0)
[2023-04-23 06:45] LABS: CALCIUM, SERUM 8.3 mg/dL (8.5-10.1); CARBON DIOXIDE 11 mmol/L (21-32); CHLORIDE 114 mmol/L (98-107); CREATININE 1.8 mg/dL (0.6-1.3); GLUCOSE 275 mg/dL (74-106); POTASSIUM 3.9 mmol/L (3.5-5.1); SODIUM SERUM 148 mmol/L (136-145); UREA NITROGEN, BLOOD 70 mg/dL (7-18)
--- NOTE | 2023-04-23 07:00 | NUR ---
RN OPENING NOTES RECIEVED REPORT FROM NIGHTSHIFT RN. PATIENT ON 1 LITER OXYGEN VIA NASAL CANULA, TOLERATING WELL. READING SINUS TACHYCARDIA ON CIVIL ENGINEER IN TRAINING. PATIENT OBTUNDED. NUNN ATTACHED DRAINING OUTPUT. NPO AT THIS TIME, UNABLE TO TOLERATE FOOD AND MEDICATIONS PO. IV ACCESS ON RIGHT UPPER ARM MIDLINE INFUSING FLUIDS ORDERED. SAFETY MEASURES IMPLEMENTED. WILL CONTINUE PLAN OF CARE AND ANTICIPATE NEEDS.
--- NOTE | 2023-04-23 07:01 | NUR ---
RN CLOSING NOTES PATIENT IN BED AWAKE, ALL DUE MEDS GIVEN. O2 SAT 92% IN N/C 1L, NUNN CATH IN PLACE 300 OUTPUT VITAL IS ON NORMAL LIMITS, BED IN LOW POSITION, BED LOCK, SAFETY MEASURE PROVIDED, CALL LIGHT WITHIN REACH ENDORSE TO DAY SHIFT NURSE.
[2023-04-23] MEDS: PANTOPRAZOLE 40 MG TABLET.DR PO SCH (07:30)
[2023-04-23] MEDS: ALBUTEROL HALF STRENGTH 1.25 MG/3 ML VIAL.NEB NEB SCH ×4 (07:41→21:05)
[2023-04-23] MEDS: IPRATROPIUM NEB FS 0.5 MG/2.5 ML AMPUL.NEB NEB SCH ×3 (07:42→19:30)
[2023-04-23] MEDS: ASPIRIN 81 MG TAB.CHEW PO SCH (08:54)
[2023-04-23] MEDS: CEFEPIME 1 GM in IV D5W 50 ML IV SCH (08:55)
[2023-04-23] MEDS: HEPARIN SODIUM, PORCINE 5000 UNITS/1 ML VIAL SQ SCH ×2 (08:56→21:55)
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
[2023-04-23] MEDS: DAKINS QUARTER STRENGTH (0.125%) 480 ML BOTTLE TOP SCH (09:30)
--- NOTE | 2023-04-23 09:48 | NUR ---
NON ADMIN MAXIPIME 1 GRAM. MEDICATION ALREADY GIVEN WITH MORNING MEDICATION PASS
[2023-04-23] MEDS ORDERED: CEFEPIME 1 GM in IV D5W 50 ML IV ONE (10:00)
[2023-04-23] MEDS ORDERED: VANCOMYCIN HCL 0.75 GM in IV D5W 250 ML IV SCH ×2 (10:30→11:00)
--- NOTE | 2023-04-23 10:42 | NUR ---
SW Consult: Patient is a 72 male presented to [facility] Er wish sacral would on his lower back going all the way down to his sacrum. Patient is confused, irresponsive, his body shaking. Per SIRIA Allen the patient is weak and malnourished. Patient was unable to speak with SW. Unable to assess. DC Plan: Pt will return back to [facility] at [address] [place] [address] . No resources needed.
[2023-04-23] MEDS: IV NS 0.9% 1,000 ML IV PRN (10:48)
[2023-04-23] MEDS: CEFEPIME 2 GM in IV D5W 100 ML IV SCH (10:49)
--- NOTE | 2023-04-23 10:59 | NUR ---
Facility Contact: MOHIT spoke to Sis (admin) from the [facility] regarding the patient being malnourished, underweight and developing sacral wounds. Sis informed the the patient was transferred to [facility] on 03/20/23 for the hip surgery with no sacral wounds. When he got admitted back to the facility on 04/03/23 he had the sacral wounds on his back. Addendum: 04/27/23 at 1021 by MATT RUEDA Sis had initially denied that pt had wounds at the facility.
--- NOTE | 2023-04-23 11:19 | NUR ---
MRI CANNOT BE DONE PATIENT UNABLE TO HOLD HIS HEAD STILL.
[2023-04-23 11:49] LABS: THYROID STIMULATING HORMONE 1.012 uIU/mL (0.358-3.74)
[2023-04-23 12:02] LABS: ABG BASE EXCESS -13.1 mmol/L; ABG PCO2 19.6 mmHg (35.0-45.0); ABG PH 7.353 (7.350-7.450); ABG PO2 63.7 mmHg (75.0-100.0); COHb 0.3 % (0.5-1.5); MetHb 0.1 % (0.0-1.5); O2Hb 90.5 % (94.0-97.0); SITE, ABG Right Brachial; VENT MODE, BG NASAL CANNULA
[2023-04-23] MEDS: Sodium Bicarbonate 150 MEQ in IV D5W 1,000 ML IV SCH ×2 (12:11→23:30)
[2023-04-23 12:15] LABS: CALCIUM, SERUM 8.2 mg/dL (8.5-10.1); CARBON DIOXIDE 12 mmol/L (21-32); CHLORIDE 115 mmol/L (98-107); CREATININE 1.9 mg/dL (0.6-1.3); GLUCOSE 287 mg/dL (74-106); POTASSIUM 3.8 mmol/L (3.5-5.1); SODIUM SERUM 148 mmol/L (136-145); UREA NITROGEN, BLOOD 73 mg/dL (7-18)
--- NOTE | 2023-04-23 13:22 | NUR ---
PATIENT TRANSFERRED TO ICU ROOM 257 PER ACLS PROTOCOL. HAND OFF REPORT GIVEN TO CHARGE NURSE AND ACTING INSULATION AND FLOORING ASSEMBLER GIL FOR CONTINUATION OF CARE.
--- NOTE | 2023-04-23 13:30 | NUR ---
USER SUPPORT SPECIALIST RECEIVED PT BY BED WITH MONITOR FROM VISHAL FOR CLOSER OBSERVATION. BICARB DRIP STARTED BEFORE TRANSFER.
--- NOTE | 2023-04-23 18:07 | NUR ---
RN CLOSING NOTES: PATIENT ON 1 LITER OXYGEN VIA NASAL CANULA, TOLERATING WELL. SINUS TACHYCARDIA 105S ON MONITOR. OBTUNDED, DOES NOT FOLLOW COMMANDS, UNABLE TO TELL FACIAL ASYMMETRY DUE TO FREQUENT HEAD AND FACILA MOVEMENTS NUNN CATHETER IS PATENT CLOUDY AND LIGHT YELLOW. NPO. RIGHT UPPER ARM MIDLINE IS IS INTACT. ON SODIUM BICARB DRIP AT 100 ML/HR FOR ACIDOSIS. WILL ENDORSE TO PM RN.
--- NOTE | 2023-04-23 19:15 | NUR ---
ICU/RN NOTE Received pt in bed, awake, non-verbally responsive. Responsive to touch and pain stimuli only. On 2lit via NC, O2 sat-90-92%, breathing slightly labored. Attached to bedside air sampling and monitoring current reading ST 120's. Sodium bicarb in D5W at 100ml/hr infusing to SHELDON ML, well brayden. Villagran cath in place, draining clear yellow urine by gravity, slightly cloudy. HOB elevated for comfort. Will continue plan of care.
--- NOTE | 2023-04-23 20:20 | NUR ---
received on 2 lpm nasal cannula. nts preformed. spo2 decreased. pt placed on simple mask 10l at this time Addendum: 04/23/23 at 2323 by KENNEDY HOOKS RT Amended: Links added.
--- NOTE | 2023-04-23 20:20 | NUR ---
ICU/RN NOTE Pt placed on simple mask 10lit d/t decreased O2 sat. RT at bedside.
[2023-04-24] VITALS (24 sets, daily range): BP systolic 101–140; BP diastolic 54–71; TEMP 96.5–99
[2023-04-24 04:02] LABS: BASOPHILS % (AUTO) 0.1 % (0.0-2.0); EOSINOPHILS % (AUTO) 0.2 % (0.0-6.0); HEMATOCRIT 27 % (39-51); LYMPHOCYTES # (AUTO) 0.3 K/uL (0.8-4.8); LYMPHOCYTES % (AUTO) 3.1 % (20.0-44.0); MEAN CORPUSCULAR HGB CONC 33 g/dl (31.0-36.0); MEAN CORPUSCULAR VOLUME 83 fL (80-96); MONOCYTES # (AUTO) 0.4 K/uL (0.1-1.30); MONOCYTES % (AUTO) 3.5 % (2.0-12.0); NEUTROPHILS # (AUTO) 9.8 K/uL (1.8-8.9); NEUTROPHILS % (AUTO) 93.1 % (43.0-81.0); PLATELET COUNT (AUTO) 283 K/uL (150-450); RED BLOOD CELL COUNT(AUTO) 3.29 MIL/uL (4.5-6.0); WHITE BLOOD COUNT (AUTO) 10.5 K/uL (4.3-11.0)
[2023-04-24 04:27] LABS: CALCIUM, SERUM 8.4 mg/dL (8.5-10.1); CARBON DIOXIDE 28 mmol/L (21-32); CHLORIDE 114 mmol/L (98-107); CREATININE 1.7 mg/dL (0.6-1.3); GLUCOSE 215 mg/dL (74-106); POTASSIUM 3.2 mmol/L (3.5-5.1); SODIUM SERUM 151 mmol/L (136-145); UREA NITROGEN, BLOOD 64 mg/dL (7-18)
[2023-04-24] MEDS: INSULIN REGULAR, HUMAN 100 UNIT/ML 3 ML VIAL SQ PRN ×3 (06:03→17:06)
[2023-04-24] MEDS: BLOOD SUGAR DIAGNOSTIC 1 EACH STRIP IN SCH ×3 (06:04→17:06)
--- NOTE | 2023-04-24 07:04 | NUR ---
RN NOTES RECEIVED PT ON BED, EYES OPEN , DOES NOT RESPONDS TO PAINFUL STIMULI, MOVING HEAD UP AND DOWN CONTINUOUSLY, ON FACE MASK AT 10 L , O2 SAT WNL, ON BICARB DRIP AT 100 CC /HR , ON TELE ST HR IN 110'S, PT IS NPO , IV SITE CDI, NUNN DRAINING TO GRAVITY, SR UP x3, CALL LIGHT WITHIN EASY REACH, BED LOCKED AND IN LOWEST POSITION, CONTINUE TO MONITOR.
--- NOTE | 2023-04-24 07:29 | NUR ---
ICU/RN NOTES Hand off report given to morning shift nurse for continuity of care.
[2023-04-24] MEDS: PANTOPRAZOLE 40 MG TABLET.DR PO SCH (07:30)
[2023-04-24] MEDS: IPRATROPIUM NEB FS 0.5 MG/2.5 ML AMPUL.NEB NEB SCH ×3 (07:34→20:15)
[2023-04-24] MEDS: ALBUTEROL HALF STRENGTH 1.25 MG/3 ML VIAL.NEB NEB SCH ×3 (07:34→20:15)
[2023-04-24] MEDS: ASPIRIN 81 MG TAB.CHEW PO SCH (08:01)
[2023-04-24] MEDS: CEFEPIME 2 GM in IV D5W 100 ML IV SCH (08:02)
[2023-04-24] MEDS: DAKINS QUARTER STRENGTH (0.125%) 480 ML BOTTLE TOP SCH (08:02)
[2023-04-24] MEDS: HEPARIN SODIUM, PORCINE 5000 UNITS/1 ML VIAL SQ SCH ×2 (08:02→20:32)
[2023-04-24] MEDS: POTASSIUM CL. PREMIX PERIPHER. 50 ML IV SCH ×4 (08:55→12:21)
--- NOTE | 2023-04-24 09:14 | NUR ---
RN NOTES CTA CANCELED PER DR KAHN ORDER DUE TO HIGH CREATININE LEVEL
--- NOTE | 2023-04-24 10:00 | NUR ---
RN NOTES OK TO CANCELL CTA PER DR THOMAS
--- NOTE | 2023-04-24 10:10 | NUR ---
RN NOTES NGT INSERTED , PLACEMENT VERIFIED BY TWO RNS .
[2023-04-24] MEDS: Sodium Bicarbonate 150 MEQ in IV D5W 1,000 ML IV SCH (10:16)
[2023-04-24] MEDS ORDERED: GLUCERNA 1.2 1,000 ML BOTTLE NG PRN (10:30)
[2023-04-24] MEDS: VANCOMYCIN 500 MG in IV D5W 100ml IV SCH (11:30)
[2023-04-24] MEDS: IV D5/0.45 NACL 1,000 ML IV SCH ×2 (12:25→21:41)
[2023-04-24] MEDS: GLUCERNA 1.2 1,000 ML BOTTLE NG PRN (12:28)
--- NOTE | 2023-04-24 14:00 | NUR ---
RN NOTES PT TOLERATING NG TF AT 20 CC/HR WELL, ORAL CARE DONE, CONTINUE TO MONITOR.
[2023-04-24] MEDS: ARGININE/GLUTAMINE/CALCIUM BMB 1 EACH POWD.PACK GT SCH (17:05)
--- NOTE | 2023-04-24 18:11 | NUR ---
RN NOTES PT FOLLOWS COMMAND AT TIMES, ON 5 L O2 N/C , O2 SAT WNL, ON TELE ST HR IN 110'S , NUNN DRAINING TO GRAVITY, TOLERATING NG TF AT 30CC/HR . NO RESIDUAL NOTED, IV SITE CDI, IVF AT 100CC/HR RUNNING , WILL ENDORSE TO CCNP NURSE FOR CONTINUITY OF CARE .
--- NOTE | 2023-04-24 19:30 | NUR ---
MATHEMATICAL SCIENTIST OPENING NOTES: RECEIVED PATIENT ON 5 LITER OXYGEN VIA NASAL CANULA, TOLERATING WELL. SINUS TACHYCARDIA ON MONITOR AT 115 BPM. AFEBRILE, NON-VERBAL BUT FOLLOW COMMANDS, NOTED WITH FREQUENT HEAD AND FACIAL MOVEMENTS, WITH NUNN CATHETER IN PLACE WITH CLOUDY AND LIGHT YELLOW URINE. IV ACCESS AT RIGHT UPPER ARM MIDLINE RUNNING D5 1/2 NS AT 100 ML/HR AND RFA #20G BOTH IV ACCESS INTACT AND PATENT. SAFETY MEASURES IN PLACE; BED IN LOWEST AND LOCKED POSITION, HOB ELEVATED, BED ALARM ON, WILL CONTINUE TO MONITOR THROUGHOUT THE SHIFT.
[2023-04-24] MEDS: IV NS 0.9% 250 ML IV PRN (20:02)
[2023-04-24] MEDS: FLUCONAZOLE IN NS 100 MG in PREMIX 1 EA IV SCH ×2 (22:16)
--- NOTE | 2023-04-24 23:20 | NUR ---
RN NOTE PT BS AT 411 MG/DL, MD NOTIFIED. MD ORDERED CHANGE IVF TO 1/2 NS AT 60 ML/HR AND TO MODERATE INSULIN SLIDING SCALE, ORDER TAKEN AND CARRIED OUT. WILL CONT TO MONITOR.
[2023-04-24] MEDS ORDERED: IV 1/2NS 1000 ML 1,000 ML IV ONE (23:30)
[2023-04-25] VITALS (16 sets, daily range): BP systolic 113–133; BP diastolic 61–77; TEMP 97.7–99.1
[2023-04-25] MEDS ORDERED: INSULIN REGULAR, HUMAN 100 UNIT/ML 3 ML VIAL SQ PRN
[2023-04-25] MEDS ORDERED: BLOOD SUGAR DIAGNOSTIC 1 EACH STRIP VI SCH
[2023-04-25 03:33] LABS: BASOPHILS % (AUTO) 0.2 % (0.0-2.0); EOSINOPHILS % (AUTO) 0.1 % (0.0-6.0); HEMATOCRIT 25 % (39-51); HEMOGLOBIN 8.2 g/dL (13.5-17.5); LYMPHOCYTES # (AUTO) 0.5 K/uL (0.8-4.8); LYMPHOCYTES % (AUTO) 3.7 % (20.0-44.0); MEAN CORPUSCULAR HGB CONC 32 g/dl (31.0-36.0); MEAN CORPUSCULAR VOLUME 84 fL (80-96); MONOCYTES # (AUTO) 0.4 K/uL (0.1-1.30); MONOCYTES % (AUTO) 2.7 % (2.0-12.0); NEUTROPHILS # (AUTO) 12.2 K/uL (1.8-8.9); NEUTROPHILS % (AUTO) 93.3 % (43.0-81.0); PLATELET COUNT (AUTO) 243 K/uL (150-450); RED BLOOD CELL COUNT(AUTO) 3.02 MIL/uL (4.5-6.0); WHITE BLOOD COUNT (AUTO) 13.1 K/uL (4.3-11.0)
[2023-04-25 03:52] LABS: CALCIUM, SERUM 7.9 mg/dL (8.5-10.1); CARBON DIOXIDE 28 mmol/L (21-32); CHLORIDE 110 mmol/L (98-107); CREATININE 1.8 mg/dL (0.6-1.3); POTASSIUM 3.3 mmol/L (3.5-5.1); SODIUM SERUM 149 mmol/L (136-145); UREA NITROGEN, BLOOD 58 mg/dL (7-18)
[2023-04-25 04:16] LABS: GLUCOSE 434 mg/dL (74-106)
[2023-04-25] MEDS: VANCOMYCIN 500 MG in IV D5W 100ml IV SCH ×2 (04:30→23:50)
--- NOTE | 2023-04-25 04:38 | NUR ---
RN NOTE CRITICAL LAB OF BLOOD GLUCOSE 434. MD NOTIFIED, ORDERED TO CHANGE INSULIN SLIDING SCALE TO AGGRESSIVE. ORDER TAKEN AND CARRIED OUT. WILL CONT TO MONITOR.
--- NOTE | 2023-04-25 06:30 | NUR ---
RN NOTE PATIENT K AT 3.3, MADE AWARE. AWAITING RESPONSE.
--- NOTE | 2023-04-25 06:47 | NUR ---
DAIRY DEPARTMENT MANAGER CLOSING NOTES: PATIENT SLEEPING ON BED, ON 5 LITER OXYGEN VIA NASAL CANULA, TOLERATING WELL. SINUS TACHYCARDIA ON MONITOR AT 115 BPM. AFEBRILE, NON-VERBAL BUT FOLLOW COMMANDS, NOTED WITH FREQUENT HEAD AND FACIAL MOVEMENTS, WITH NUNN CATHETER IN PLACE WITH CLOUDY AND LIGHT YELLOW URINE. IV ACCESS AT RIGHT UPPER ARM MIDLINE RUNNING 1/2 NS AT 60 ML/HR AND RFA #20G BOTH IV ACCESS INTACT AND PATENT. SAFETY MEASURES IN PLACE; BED IN LOWEST AND LOCKED POSITION, HOB ELEVATED, BED ALARM ON, ALL DUE MEDS GIVEN, KEPT DRY AND CLEAN, WILL ENDORSE TO AM SHIFT NURSE FOR CONTINUITY OF CARE.
--- NOTE | 2023-04-25 07:00 | NUR ---
RECEIVED REPORT FROM [facility] RN MARIN. PATIENT ON 5 LITERS SUPPLEMENTAL OXYGEN VIA NASAL CANULA, WITH SPO2 AT 97%. SINUS TACHYCARDIA ON BEDSIDE MONITOR. PATIENT NON-VERBAL. NUNN CATHETER DRAINING OUTPUT. NASOGASTRIC TUBE RUNNING FEEDING ORDERED. IV ACCESS' MAINTAINED ON RIGHT UPPER ARM MIDLINE AND RIGHT FOREARM 20 GAUGE, FLUIDS INFUSING ORDERED. SAFETY MEASURES IMPLEMENTED, WILL CONTINUE PLAN OF CARE AND ANTICIPATE NEEDS.
[2023-04-25] MEDS: BLOOD SUGAR DIAGNOSTIC 1 EACH STRIP IN SCH ×4 (07:18→22:20)
[2023-04-25] MEDS: PANTOPRAZOLE 40 MG TABLET.DR PO SCH (07:18)
--- NOTE | 2023-04-25 07:18 | NUR ---
NON ADMIN FOR PROTONIX. TABLET FORM NOT SUITABLE FOR NGT ADMINISTRATION.
[2023-04-25] MEDS ORDERED: DEXTROSE 50%-WATER 50 ML DISP.SYRIN IV PRN ×2 (07:30)
[2023-04-25] MEDS ORDERED: *INSULIN REGULAR(HUMULIN R)HUM 100 UNIT/ML VIAL SQ PRN ×2 (07:30)
[2023-04-25] MEDS: ALBUTEROL HALF STRENGTH 1.25 MG/3 ML VIAL.NEB NEB SCH ×3 (07:36→20:09)
[2023-04-25] MEDS: IPRATROPIUM NEB FS 0.5 MG/2.5 ML AMPUL.NEB NEB SCH ×3 (07:36→20:09)
[2023-04-25] MEDS: HEPARIN SODIUM, PORCINE 5000 UNITS/1 ML VIAL SQ SCH ×2 (08:23→21:30)
[2023-04-25] MEDS: ASPIRIN 81 MG TAB.CHEW PO SCH (08:23)
[2023-04-25] MEDS: DAKINS QUARTER STRENGTH (0.125%) 480 ML BOTTLE TOP SCH (08:29)
[2023-04-25] MEDS: CEFEPIME 2 GM in IV D5W 100 ML IV SCH (08:30)
[2023-04-25] MEDS: PROSOURCE / PROSTAT (PYXIS) 30 ML UDC GT SCH (08:34)
[2023-04-25] MEDS: ARGININE/GLUTAMINE/CALCIUM BMB 1 EACH POWD.PACK GT SCH ×2 (08:34→18:00)
[2023-04-25] MEDS: POTASSIUM CL. PREMIX PERIPHER. 50 ML IV SCH ×4 (09:08→12:23)
--- NOTE | 2023-04-25 09:54 | NUR ---
WOUND CARE FOLLOW UP: PT SEEN FOR RE-EVALUATION OF HEEL DEEP TISSUE INJURIES WHICH WERE NOTED TO BE PRESENT ON ADMISSION. RT HEEL DTI IS BLACK IN COLOR, NO DRAINAGE OR ODOR NOTED. LEFT HEEL IS RED IN COLOR, NO DRAINAGE OR ODOR. DR ENRIQUEZ CALLED FOR WOUND ORDERS WHICH WERE RECEIVED AND DISCUSSED WITH NURSING STAFF.
[2023-04-25 10:13] LABS: ABG BASE EXCESS 1.1 mmol/L; ABG OXYGEN SATURATION 92.7 % (92.0-98.5); ABG PCO2 32.7 mmHg (35.0-45.0); ABG PH 7.487 (7.350-7.450); ABG PO2 63.6 mmHg (75.0-100.0); COHb 0.4 % (0.5-1.5); O2Hb 92.3 % (94.0-97.0); SITE, ABG Right Radial; VENT MODE, BG NASAL CANNULA
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
[2023-04-25] MEDS: INSULIN REGULAR, HUMAN 100 UNIT/ML 3 ML VIAL SQ PRN ×2 (11:49→18:21)
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
--- NOTE | 2023-04-25 14:45 | NUR ---
SAWMILL SUPERVISOR NOTE: PER MD DOWNGRADE PT TELE TO ROOM 306-2. REPORT GIVEN AUGUSTINA BEVERLY. PT LEFT IN STABLE CONDITION. TRANSPORTED VIA BED WITH ACLS PROTOCOL.
[2023-04-25] MEDS ORDERED: LIDOCAINE 2%-EPI 1:100,000 30 ML VIAL TP ONE (16:00)
[2023-04-25] MEDS ORDERED: SILVER NITRATE APPLICATOR 1 EA BOX TP ONE (16:00)
--- NOTE | 2023-04-25 16:00 | NUR ---
RN NOTES PATIENT TRANSFER FROM ICU VIA GURNEY, NO SIGN OF DISTRESS REPORT RECEIVED FROM ICU NURSE. V/S TAKEN STABLE AND RECORDED. PATIENT AWAKE IN BED RESTING, A/OX0, NO S/S OF PAIN NOTED AT THIS TIME. ON OXYGEN 5L VIA NC, BREATHING EVEN AND UNLABORED, NO DISTRESS OR SOB NOTED. IV ACCESS JOHANNA MIDLINE #18G AND RFA #20G INTACT PATENT AND FLUSHING WELL. PATIENT WITH NGTUBE, RUNNING GLUCERNA 1.2 @60ML/HR, IN PLACE AND FLUSHING WELL. PATIENT WITH NUNN CATHETER IN PLACE, DRAINING WELL. OUTPUT 600 ML. YELLOW DARK URINE. FALL AND SAFETY PRECAUTIONS IN PLACE BED ALARM ON, BED IN LOW AND LOCK POSITION, CALL LIGHT AND TABLE WITHIN EASY REACH, SIDE RAIL X2, WILL CONTINUE TO MONITOR.
[2023-04-25] MEDS: MEROPENEM 500 MG in IV NS 0.9% 50 ML IV SCH (18:00)
[2023-04-25] MEDS: GLUCERNA 1.2 1,000 ML BOTTLE NG PRN (18:18)
--- NOTE | 2023-04-25 19:02 | NUR ---
RN CLOSING NOTES PATIENT AWAKE IN BED RESTING, A/OX0, NO S/S OF PAIN NOTED AT THIS TIME. ON OXYGEN 5L VIA NC, BREATHING EVEN AND UNLABORED, NO DISTRESS OR SOB NOTED. IV ACCESS JOHANNA MIDLINE #18G AND RFA #20G INTACT PATENT AND FLUSHING WELL. PATIENT WITH NGTUBE, RUNNING GLUCERNA 1.2 @60ML/HR, IN PLACE AND FLUSHING WELL. PATIENT WITH NUNN CATHETER IN PLACE, DRAINING WELL. OUTPUT 650 ML. YELLOW DARK URINE. WOUND CARE IMPLEMENTED. PATIENT TURN AND REPOSITIONED PER PROTOCOL. SCHEDULED MEDICATION GIVEN. FALL AND SAFETY PRECAUTIONS IN PLACE BED ALARM ON, BED IN LOW AND LOCK POSITION, CALL LIGHT AND TABLE WITHIN EASY REACH, SIDE RAIL X2, WILL ENDORSE TO PLANTING MACHINE OPERATOR NURSE.
--- NOTE | 2023-04-25 19:30 | NUR ---
TOGGLE PRESS FOLDER AND FEEDER OPENING NOTE RECEIVED PATIENT FROM AM NURSE; PATIENT IN BED, A/OX0, ON 5LPM VIA NASAL CANNULA, BREATHING EVENLY AND NO DISTRESS OR SOB NOTED; WITH IV ACCESS SHELDON MIDLINE #18G AND RFA #20G; HOOKED TO SURGERY AIDE CURRENTLY READING SINUS TACHYCARDIA 120S BPM; WITH NASOGASTRIC TUBE IN PLACE RUNNING GLUCERNA 1.2 AT 60ML/HR; WITH NUNN CATHETER IN PLACE, DRAINING WELL; FALL AND SAFETY PRECAUTIONS IN PLACE BED ALARM ON, BED IN LOW AND LOCK POSITION, CALL LIGHT AND TABLE WITHIN EASY REACH, SIDE RAIL X2; WILL CONTINUE TO MONITOR THROUGHOUT SHIFT
[2023-04-25] MEDS: FLUCONAZOLE IN NS 100 MG in PREMIX 1 EA IV SCH ×2 (23:27)
[2023-04-26] VITALS: BP 136/79; TEMP 98.4
[2023-04-26 04:00] VITALS: BP 136/77; TEMP 98.5
[2023-04-26] MEDS: MEROPENEM 500 MG in IV NS 0.9% 50 ML IV SCH ×2 (04:11→15:40)
[2023-04-26 06:17] LABS: BASOPHILS % (AUTO) 0.2 % (0.0-2.0); EOSINOPHILS % (AUTO) 0.5 % (0.0-6.0); HEMATOCRIT 27 % (39-51); HEMOGLOBIN 8.7 g/dL (13.5-17.5); LYMPHOCYTES # (AUTO) 0.5 K/uL (0.8-4.8); LYMPHOCYTES % (AUTO) 3.1 % (20.0-44.0); MEAN CORPUSCULAR HGB CONC 32 g/dl (31.0-36.0); MEAN CORPUSCULAR VOLUME 84 fL (80-96); MONOCYTES # (AUTO) 0.4 K/uL (0.1-1.30); MONOCYTES % (AUTO) 2.1 % (2.0-12.0); NEUTROPHILS # (AUTO) 16.1 K/uL (1.8-8.9); NEUTROPHILS % (AUTO) 94.1 % (43.0-81.0); PLATELET COUNT (AUTO) 240 K/uL (150-450); RED BLOOD CELL COUNT(AUTO) 3.23 MIL/uL (4.5-6.0); WHITE BLOOD COUNT (AUTO) 17.1 K/uL (4.3-11.0)
[2023-04-26] MEDS: IV NS 0.9% 250 ML IV PRN (06:20)
[2023-04-26 06:24] LABS: CALCIUM, SERUM 8.3 mg/dL (8.5-10.1); CARBON DIOXIDE 28 mmol/L (21-32); CHLORIDE 110 mmol/L (98-107); CREATININE 1.4 mg/dL (0.6-1.3); GLUCOSE 236 mg/dL (74-106); POTASSIUM 3.6 mmol/L (3.5-5.1); SODIUM SERUM 149 mmol/L (136-145)
[2023-04-26] MEDS: BLOOD SUGAR DIAGNOSTIC 1 EACH STRIP IN SCH ×4 (06:40→22:22)
[2023-04-26] MEDS: INSULIN REGULAR, HUMAN 100 UNIT/ML 3 ML VIAL SQ PRN ×4 (06:41→22:24)
[2023-04-26 06:47] LABS: UREA NITROGEN, BLOOD 80 mg/dL (7-18)
--- NOTE | 2023-04-26 06:58 | NUR ---
PIPING SUPERVISOR CLOSING NOTE PATIENT IN BED, A/O X 0, ON 12LPM VIA OXYGEN MASK, BREATHING EVENLY AND NO DISTRESS NOTED SATURATING 91-94%, RT AWARE; WITH IV ACCESS SHELDON MIDLINE #18G RUNNING WITH TKO AND RFA #20G HOOKED TO CHIEF OPERATING OFFICER CURRENTLY READING SINUS TACHYCARDIA 120S-130S BPM; WITH NASOGASTRIC TUBE IN PLACE RUNNING GLUCERNA 1.2 AT 60ML/HR, FLUSHED FREE WATER ACCORDINGLY; WITH NUNN CATHETER IN PLACE DRAINING APPROXIMATELY 800ML OF URINE; ADMINISTERED MEDICATIONS PRESCRIBED; PATIENT'S NEEDS ATTENDED; MONITORED PATIENT ACCORDINGLY; FALL AND SAFETY PRECAUTIONS IN PLACE, BED ALARM ON, BED LOCKED IN LOWEST POSITION, CALL LIGHT WITHIN REACH, HEAD OF BED ELEVATED, SIDE RAILS UP X2; WILL ENDORSE TO AM NURSE FOR CHRISTINA.
[2023-04-26] MEDS: PANTOPRAZOLE 40 MG TABLET.DR PO SCH (07:30)
--- NOTE | 2023-04-26 07:40 | NUR ---
TREE SCOUT OPENING NOTE PATIENT IN BED, A/O X 0, ON 12LPM VIA OXYGEN MASK, BREATHING EVENLY AND NO DISTRESS NOTED SATURATING 91-93%. WITH IV ACCESS SHELDON MIDLINE #18G RUNNING WITH TKO AND RFA #20G SL. ON TELE MONITOR BILLING SUPERVISOR CURRENTLY READING SINUS TACHYCARDIA 120S-130S BPM; WITH NASOGASTRIC TUBE IN PLACE RUNNING GLUCERNA 1.2 AT 60ML/HR, FLUSHED FREE WATER ACCORDINGLY; WITH NUNN CATHETER IN PLACE DRAINING APPROXIMATELY YELLOW COLORED URINE; FALL AND SAFETY PRECAUTIONS IN PLACE, BED ALARM ON, BED LOCKED IN LOWEST POSITION, CALL LIGHT WITHIN REACH, HEAD OF BED ELEVATED, SIDE RAILS UP X2; WILL CONTINUE TO MONITOR.
[2023-04-26] MEDS: IPRATROPIUM NEB FS 0.5 MG/2.5 ML AMPUL.NEB NEB SCH ×3 (07:56→20:14)
[2023-04-26] MEDS: ALBUTEROL HALF STRENGTH 1.25 MG/3 ML VIAL.NEB NEB SCH ×3 (07:56→20:14)
[2023-04-26 08:20] VITALS: BP 98/66; TEMP 98
[2023-04-26] MEDS: DAKINS QUARTER STRENGTH (0.125%) 480 ML BOTTLE TOP SCH (09:00)
[2023-04-26] MEDS: ARGININE/GLUTAMINE/CALCIUM BMB 1 EACH POWD.PACK GT SCH ×2 (09:57→16:39)
[2023-04-26] MEDS: ASPIRIN 81 MG TAB.CHEW PO SCH (09:57)
[2023-04-26] MEDS: PROSOURCE / PROSTAT (PYXIS) 30 ML UDC GT SCH (09:58)
[2023-04-26] MEDS: HEPARIN SODIUM, PORCINE 5000 UNITS/1 ML VIAL SQ SCH ×2 (10:00→21:36)
[2023-04-26] MEDS: ACETAMINOPHEN 325 MG TABLET PO PRN ×2 (10:12→15:14)
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
[2023-04-26 13:38] VITALS: BP 103/49; TEMP 98.8
[2023-04-26] MEDS: GLUCERNA 1.2 1,000 ML BOTTLE NG PRN (15:19)
[2023-04-26] MEDS: VANCOMYCIN 500 MG in IV D5W 100ml IV SCH (16:45)
[2023-04-26 16:48] VITALS: BP 100/59; TEMP 98
--- NOTE | 2023-04-26 17:24 | NUR ---
RN NOTES Sacral debridement was done by Pamela RUSSELL however prior to proceeding with debridement, developed labored breathing hence decision was made not to complete with debridement of the sacrum.
[2023-04-26] MEDS ORDERED: VANCOMYCIN 500 MG in IV D5W 100ml IV SCH (18:00)
--- NOTE | 2023-04-26 18:03 | NUR ---
called for patient to see if he could come down for ct head, nurse stated he wasnt stable enough. Nurse was asked to call radiology when he was stable enough
--- NOTE | 2023-04-26 18:41 | NUR ---
POTATO CHIP COOKER MACHINE CLOSING NOTE PATIENT IN BED, A/O X 0, ON 12LPM VIA OXYGEN MASK, BREATHING EVENLY AND NO DISTRESS NOTED SATURATING 90-94%, WITH IV ACCESS SHELDON MIDLINE #18G RUNNING WITH TKO AND RFA #20G ON GLASS RIBBON MACHINE OPERATOR CURRENTLY READING SINUS TACHYCARDIA 117 BPM; WITH NASOGASTRIC TUBE IN PLACE RUNNING GLUCERNA 1.2 AT 60ML/HR, FLUSHED FREE WATER ACCORDINGLY; WITH NUNN CATHETER IN PLACE DRAINING APPROXIMATELY YELLOW COLORED URINE; PATIENT HAS EPISODE OF LABORED BREATHING WHEN TURING OR WHILE HAVING PROCEDURE, MONITORED PATIENT ACCORDINGLY. ADMINISTERED MEDICATIONS PRESCRIBED; PATIENT'S NEEDS ATTENDED; ; FALL AND SAFETY PRECAUTIONS IN PLACE, BED ALARM ON, BED LOCKED IN LOWEST POSITION, CALL LIGHT WITHIN REACH, HEAD OF BED ELEVATED, SIDE RAILS UP X2; WILL ENDORSE TO NEXT NURSE FOR CHRISTINA.
--- NOTE | 2023-04-26 19:30 | NUR ---
noc rn opening received patient in bed, eyes open but non-verbal. restless, patient breathing even and unlabored with no apparent distress on 10lpm of o2 via simple mask. reading st on the tele monitor 148 bpm. smith catheter draining clear heidi colored urine. right hip noted to have negrito on open to air. NGT 45cm in right nares running Glucerna 1.2 @60mls/hr. right upper arm midline running ns @10ml/hr TKO. safety in place. will continue with the plan of care for patient.
--- NOTE | 2023-04-26 19:46 | NUR ---
noc rn note patient noted to be in pain via flacc, restless and hr up to the 140's. Given Wykoff 5 as ordered PRN. BP stable. will re-assess.
[2023-04-26 20:06] VITALS: BP 124/99; TEMP 97.8
--- NOTE | 2023-04-26 21:47 | NUR ---
elias lombardo note HR went down, 123 bpm at this time. Residuals noted >60cc, stopped Feeding at this time. will continue to monitor and resume feeding as tolerated. Addendum: 04/26/23 at 2150 by ROBNY SEALS RN disregard.
[2023-04-26] MEDS: FLUCONAZOLE IN NS 100 MG in PREMIX 1 EA IV SCH ×2 (23:17)
[2023-04-27 00:02] VITALS: BP 115/56; TEMP 98.4
[2023-04-27] MEDS: MEROPENEM 500 MG in IV NS 0.9% 50 ML IV SCH ×2 (04:11→17:05)
[2023-04-27 04:25] VITALS: BP 121/66; TEMP 98
[2023-04-27 04:51] VITALS: BP 154/72; TEMP 98
[2023-04-27 05:55] LABS: BASOPHILS % (AUTO) 0.1 % (0.0-2.0); EOSINOPHILS % (AUTO) 0.3 % (0.0-6.0); HEMATOCRIT 27 % (39-51); HEMOGLOBIN 8.4 g/dL (13.5-17.5); LYMPHOCYTES # (AUTO) 0.6 K/uL (0.8-4.8); LYMPHOCYTES % (AUTO) 3.3 % (20.0-44.0); MEAN CORPUSCULAR HGB CONC 31 g/dl (31.0-36.0); MEAN CORPUSCULAR VOLUME 84 fL (80-96); MONOCYTES # (AUTO) 0.3 K/uL (0.1-1.30); NEUTROPHILS # (AUTO) 15.9 K/uL (1.8-8.9); NEUTROPHILS % (AUTO) 94.3 % (43.0-81.0); PLATELET COUNT (AUTO) 210 K/uL (150-450); RED BLOOD CELL COUNT(AUTO) 3.19 MIL/uL (4.5-6.0); WHITE BLOOD COUNT (AUTO) 16.9 K/uL (4.3-11.0)
[2023-04-27 06:12] LABS: CALCIUM, SERUM 9.3 mg/dL (8.5-10.1); CARBON DIOXIDE 32 mmol/L (21-32); CHLORIDE 110 mmol/L (98-107); CREATININE 1.8 mg/dL (0.6-1.3); POTASSIUM 4.1 mmol/L (3.5-5.1); SODIUM SERUM 148 mmol/L (136-145)
[2023-04-27 06:38] LABS: GLUCOSE 408 mg/dL (74-106); UREA NITROGEN, BLOOD 91 mg/dL (7-18)
[2023-04-27] MEDS: INSULIN REGULAR, HUMAN 100 UNIT/ML 3 ML VIAL SQ PRN (06:51)
[2023-04-27] MEDS: BLOOD SUGAR DIAGNOSTIC 1 EACH STRIP IN SCH ×3 (06:52→17:49)
--- NOTE | 2023-04-27 07:08 | NUR ---
NOC RN NOTE PATIENT BLOOD SUGAR 418 THIS AM. GIVEN 20 UNITS OF INSULIN PER PROTOCOL AND MADE HOSPITALIST TANVI MICHEL AWARE. HOSPITALIST ORDERED 15 MORE UNITS OF REGULAR AND 10 UNITS OF LANTUS ONE IN AM AND 10 UNITS IN PM, ROUTINE. ORDER READ BACK.
--- NOTE | 2023-04-27 07:23 | NUR ---
LIGHT BULB ASSEMBLER OPENING NOTE PATIENT IN BED, A/O X 0, ON 8LPM VIA OXYGEN MASK, BREATHING EVEN AND NO DISTRESS NOTED SATURATING 90-94%, WITH IV ACCESS SHELDON MIDLINE #18G RUNNING WITH TKO AND RFA #20G SL. PATIENT WITH EXTERNAL HOSE SUSPENDER CUTTER WITH READING SINUS TACHYCARDIA 113 BPM; WITH NASOGASTRIC TUBE IN PLACE RUNNING GLUCERNA 1.2 AT 60ML/HR, FLUSHED FREE WATER ACCORDINGLY; WITH NUNN CATHETER IN PLACE DRAINING APPROXIMATELY YELLOW COLORED URINE ADMINISTERED MEDICATIONS PRESCRIBED; PATIENT'S NEEDS ATTENDED; FALL AND SAFETY PRECAUTIONS IN PLACE, BED ALARM ON, BED LOCKED IN LOWEST POSITION, CALL LIGHT WITHIN REACH, HEAD OF BED ELEVATED, SIDE RAILS UP X2; WILL CONTINUE TO MONITOR
--- NOTE | 2023-04-27 07:27 | NUR ---
NOC RN CLOSING NOTE NO SIGNIFICANT CHANGE THROUGHOUT SHIFT. REPORT GIVEN TO SIRIA CLIFTON FOR CONTINUITY OF CARE.
[2023-04-27] MEDS ORDERED: INSULIN REGULAR, HUMAN 100 UNIT/ML 3 ML VIAL SQ ONE (07:30)
[2023-04-27 07:45] LABS: BAND % (MANUAL) 2 % (0.0-5.0); LYMPHOCYTES % (MANUAL) 2 % (16-48); MONOCYTES % (MANUAL) 2 % (0-11.0); NEUTROPHILS % (MANUAL) 94 (42-76)
[2023-04-27] MEDS: IPRATROPIUM NEB FS 0.5 MG/2.5 ML AMPUL.NEB NEB SCH ×2 (07:46→13:23)
[2023-04-27] MEDS: ALBUTEROL HALF STRENGTH 1.25 MG/3 ML VIAL.NEB NEB SCH ×2 (07:46→13:23)
[2023-04-27 08:16] VITALS: BP 152/86; TEMP 98.4
[2023-04-27] MEDS: PANTOPRAZOLE 40 MG TABLET.DR PO SCH (08:16)
[2023-04-27] MEDS: PROSOURCE / PROSTAT (PYXIS) 30 ML UDC GT SCH (08:29)
[2023-04-27] MEDS ORDERED: INSULIN GLARGINE, 100 UNIT/ML CARTRIDGE SQ ONE (09:00)
[2023-04-27] MEDS ORDERED: INSULIN GLARGINE, 100 UNIT/ML CARTRIDGE SQ SCH ×2 (09:00→17:00)
--- NOTE | 2023-04-27 09:00 | NUR ---
RN NOTE PATIENT NOTED TO HAVE CRACKLES UPON AUSCULTATION. CHECKED PATENCY OF NG TUBE, GURGLING SOUND NOTED DURING AUSCULTATION. REQUESTED STAT XRAY TO CONFIRM PATENCY. CHARGE NURSE AWARE. WILL CONTINUE TO MONITOR PATIENT
[2023-04-27] MEDS: ARGININE/GLUTAMINE/CALCIUM BMB 1 EACH POWD.PACK GT SCH ×2 (09:16→17:05)
[2023-04-27] MEDS: ASPIRIN 81 MG TAB.CHEW PO SCH (09:16)
[2023-04-27] MEDS: HEPARIN SODIUM, PORCINE 5000 UNITS/1 ML VIAL SQ SCH (09:29)
[2023-04-27] MEDS: DAKINS QUARTER STRENGTH (0.125%) 480 ML BOTTLE TOP SCH (09:31)
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
[2023-04-27] MEDS ORDERED: IV 1/2NS 1000 ML 1,000 ML IV SCH (10:30)
[2023-04-27] MEDS ORDERED: *INSULIN REGULAR(HUMULIN R)HUM 100 UNIT/ML VIAL SQ PRN (10:30)
[2023-04-27] MEDS ORDERED: INSULIN REGULAR, HUMAN 100 UNIT/ML 3 ML VIAL SQ PRN (10:30)
[2023-04-27] MEDS ORDERED: DEXTROSE 50%-WATER 50 ML DISP.SYRIN IV PRN (10:30)
[2023-04-27] MEDS ORDERED: FUROSEMIDE 40 MG/4 ML VIAL IV SCH (11:00)
[2023-04-27 11:58] VITALS: BP 112/69; TEMP 98.3
[2023-04-27 15:52] VITALS: BP 105/56; TEMP 97.5
--- NOTE | 2023-04-27 17:00 | NUR ---
RN NOTE PATIENT NOTED TO HAVE A LOW BLOOD GLUCOSE LEVEL BASED ON ACCUCHECK. RESUMED FEEDING AND RECHECKED BLOOD SUGAR LEVEL. LATEST BLOOD SUGAR CHECK 91. CHARGE NURSE MADE AWARE. WILL CONTINUE TO MONITOR PATIENT
[2023-04-27] MEDS ORDERED: LORAZEPAM INJ 2 MG/ML VIAL IV PRN (19:30)
[2023-04-27] MEDS ORDERED: ACETAMINOPHEN 650 MG/SUPP.RECT RC PRN (19:30)
--- NOTE | 2023-04-27 19:35 | NUR ---
RN NOTE NG TUBE ADVANCED TO LEVEL 56. STAT XRAY REQUESTED TO CONFIRM PLACEMENT. NG TUBE FEEDING RESUMED ORDERED. WILL CONTINUE TO MONITOR THE PATIENT
--- NOTE | 2023-04-27 19:37 | NUR ---
CLIP RIVETER CLOSING NOTE PATIENT IN BED, A/O X 0, ON O2 AT 10LPM VIA OXYGEN MASK, BREATHING EVEN AND NO DISTRESS NOTED SATURATING 87-90%, WITH IV ACCESS SHELDON MIDLINE #18G SL. PATIENT WITH EXTERNAL STREETSWEEPER OPERATOR WITH READING SINUS TACHYCARDIA WITH HR OF 123 BPM; WITH NASOGASTRIC TUBE IN PLACE RUNNING GLUCERNA 1.2 AT 60ML/HR, FLUSHED FREE WATER ACCORDINGLY; WITH NUNN CATHETER IN PLACE DRAINING APPROXIMATELY YELLOW COLORED URINE WITH OUTPUT OF 500 ML. WOUND CARE IMPLEMENTED ADMINISTERED MEDICATIONS PRESCRIBED; PATIENT'S NEEDS ATTENDED; FALL AND SAFETY PRECAUTIONS IN PLACE, BED ALARM ON, BED LOCKED IN LOWEST POSITION, CALL LIGHT WITHIN REACH, HEAD OF BED ELEVATED, SIDE RAILS UP X2; WILL ENDORSE TO BATCH ANALYST NURSE.
[2023-04-28] MEDS ORDERED: VANCOMYCIN 500 MG in IV D5W 100ml IV SCH (08:00)
== END 2023-04-27 19:49 | disposition hospice, inpatient (51) | DRG 871 ==
LOC: ER 21:07 → ICU 04-21 01:07 → TELE1 04-22 12:44 → ICU 04-23 13:11 → TELE 04-25 14:34
PROVIDERS: ADMIT Internal Medicine; ATTEND Internal Medicine
PROC: 05H933Z Insertion of Infusion Device into Right Brachial Vein, Percutaneous Approach (ICD-10-PCS; 2023-04-21)
PROC: 0KBP3ZZ Excision of Left Hip Muscle, Percutaneous Approach (ICD-10-PCS; principal; 2023-04-26)
PROC: 0KBN3ZZ Excision of Right Hip Muscle, Percutaneous Approach (ICD-10-PCS; 2023-04-26)
PROC: 0H96XZZ Drainage of Back Skin, External Approach (ICD-10-PCS; 2023-04-26)
DX: A41.50 Gram-negative sepsis, unspecified (principal); E11.00 Type 2 diabetes mellitus with hyperosmolarity without nonketotic hyperglycemic-hyperosmolar coma (NKHHC); E43 Unspecified severe protein-calorie malnutrition; I21.A1 Myocardial infarction type 2; G93.41 Metabolic encephalopathy; N17.0 Acute kidney failure with tubular necrosis; J15.6 Pneumonia due to other Gram-negative bacteria; J96.01 Acute respiratory failure with hypoxia; I63.9 Cerebral infarction, unspecified; N39.0 Urinary tract infection, site not specified; L02.212 Cutaneous abscess of back [any part, except buttock and flank]; G81.94 Hemiplegia, unspecified affecting left nondominant side; R47.01 Aphasia; B96.20 Unspecified Escherichia coli [E. coli] as the cause of diseases classified elsewhere; B96.4 Proteus (mirabilis) (morganii) as the cause of diseases classified elsewhere; Z66 Do not resuscitate; Z51.5 Encounter for palliative care; Z79.4 Long term (current) use of insulin; E87.5 Hyperkalemia; E88.09 Other disorders of plasma-protein metabolism, not elsewhere classified; S30.0XXA Contusion of lower back and pelvis, initial encounter; X58.XXXA Exposure to other specified factors, initial encounter; Y92.89 Other specified places as the place of occurrence of the external cause; L89.626 Pressure-induced deep tissue damage of left heel; D64.9 Anemia, unspecified; S72.011D Unspecified intracapsular fracture of right femur, subsequent encounter for closed fracture with routine healing; X58.XXXD Exposure to other specified factors, subsequent encounter; R65.20 Severe sepsis without septic shock; I69.398 Other sequelae of cerebral infarction; R29.810 Facial weakness; R29.724 NIHSS score 24; G25.5 Other chorea; Z87.891 Personal history of nicotine dependence; N28.1 Cyst of kidney, acquired; E87.6 Hypokalemia
CPT/HCPCS: 31720; 36410; 36415; 36600; 70450-TC; 71045-TC; 76770-TC; 80048-TC; 80061-TC; 80076-TC; 80202-TC; 81001; 82010-TC; 82140-TC; 82607-TC; 82803-TC; 82962-TC; 83605-TC; 83735-TC; 84100-TC; 84439-TC; 84443-TC; 84480; 84484-TC; 85025-TC; 85730-TC; 87040-TC; 87086-TC; 93307-TC; 94799-TC; A4216; A4223; A6253; A6403; G0378; J0456; J0692; J0696; J1450; J1644; J1815; J2185; J2270; J2274; J2405; J3370; J3480; J3490; J7030; J7050; J7060; J7070

== ENCOUNTER 2023-04-27 20:14 | Inpatient (IN) | payer MEDICARE, OTHER ==
[~2023-04-27] VITALS: Ht 165.1 cm; Wt 54.4 kg
[2023-04-27 20:00] VITALS: BP 123/53; TEMP 98
--- NOTE | 2023-04-27 20:00 | NUR ---
RN MS ADMISSION NOTES PRESENTLY ADMITTED A 72 YEAR OLD MALE UNDER DEDICATED HOSPICE CARE, PATIENT IS UNABLE TO GIVE ANY HISTORY. A/O X 0 NON-VERBAL. WITH IV ACCESS AT SHELDON PICC LINE NOTED PATENT AND INTACT NO SWELLING OR INFILTRATION NOTED AT THI TIME. PATIENT IS ON UNLABORED BREATHING HOOKED TO OXYGEN VIA SIMPLE FACE MASK AT 10LPM SATURATING AT 90%. PLACE ON MODERATE HIGH BACK REST POSITION. WITH NUNN CATHETER CONNECTED TO URINE BAG NOTED CLEAR URINE OUTPUT. SKIN ASSESSMENT DONE, HISTORY TAKEN VIA PREVIOUS ORDER. PATIENT ATTENDING PHYSICIANS INFORMED, KEPT PATIENT CLEAN AND DRY, KEPT PATIENT WARM AND COMFORTABLE. WILL CONTINUE TO MONITOR.
[2023-04-27] MEDS ORDERED: LORAZEPAM INJ 2 MG/ML VIAL IV PRN ×2 (20:25→21:00)
[2023-04-27] MEDS ORDERED: ACETAMINOPHEN 650 MG/SUPP.RECT RC PRN ×2 (20:25→21:00)
[2023-04-27] MEDS ORDERED: KEY,NONCONTROL,TO KEEP IN PYXI 1 EA MC ONE (20:51)
[2023-04-27] MEDS ORDERED: MORPHINE SULFATE PF DRIP 250 MG in IV D5W 240 ML IV PRN (21:00)
--- NOTE | 2023-04-27 21:11 | NUR ---
MORPHINE DRIP NOTES RECEIVED ORDER FROM DR. KAHN, STARTED MORPHINE DRIP 1MG PER HOUR IV DRIP AND MAY TITRATE UP TO 5MG/HOUR WITH NS 250 TKO. INFUSING WELL NO SWELLING OR INFILTRATION NOTED. MORPHINE DRIP WAS WITNESSED BY MR. PARIS BEVERLY. CHARGE NURSED MS. VELAZQUEZ AND RODEO CLOWN WAS INFORMED AND VERIFIED ORDER. KEPT PATIENT WARM AND COMFORTABLE. PATIENT IS NOT AGITATED AT THIS TIME. WILL CONTINUE TO MONITOR.
--- NOTE | 2023-04-28 06:53 | NUR ---
RN CLOSING NOTES PATIENT IS IN BED, ON MODERATE HIGH BACK REST POSITION. HOOKED TO OXYGEN VIA NASAL CANNULA AT 5 LPM SATURATING WELL NON-LABOR AND ON RELAX POSITION. WITH IV ACCESS AT RIGHT PICC LINE WITH ONGOING MORPHINE DRIP AT 1MG/HR INFUSING WELL NO SWELLING OR INFILTRATION NOTED AT THIS TIME. PATIENT TURN EVERY 2 HOURS, ON AIR MATTRESS. ALL DUE MEDICATION GIVEN , ALL NEEDS ATTENDED. KEPT BED ON LOWER LOCKED POSITION, KEPT SIDE RAILS UP X 2 ALL THE TIME, KEPT PATIENT WARM AND COMFORTABLE. PATIENT IS NOT IN DISTRESS AND NO SOB/ NOTED, FORT COMFORT MEASURES, WILL ENDORSED TO AM SHIFT FOR CHRISTINA.
--- NOTE | 2023-04-28 07:05 | NUR ---
RN OPENING NOTES RECEIVED PATIENT SLEEPING IN BED; A/O X 0; HOSPICE CARE, ON 10L VIA FACIAL MASK; NO S/S OF RESPIRATORY DISTRESS; IV ACCESS SHELDON PICC WITH MORPHINE DRIP 1 MG/HR, INTACT AND PATENT; NUNN CATHETER IN PLACE AND DRAINING WELL; NO DISTRESS, AGITATION OR ANXIETY NOTED. FALL AND SAFETY MEASURES IN PLACE; BED IN LOW AND LOCKED POSITION; CALL LIGHT WITHIN REACH; SIDE RAILS UP X 2; WILL CONTINUE TO MONITOR.
[2023-04-28 08:00] VITALS: BP 102/56; TEMP 100.4
--- NOTE | 2023-04-28 10:52 | NUR ---
RN NOTE PATIENT RESTING WELL IN BED, NO AGITATION NOTED. ATTEMPTED TO TITRATE O2 BUT O2 STAT WENT DOWN TO 85 ON 8L OF O2 VIA FACIAL MASK. PUT BACK ON 10L OF O2 VIA FACIAL MASK NOW SATING 90-92%.
[2023-04-28 16:10] VITALS: BP 109/56; TEMP 97.8
--- NOTE | 2023-04-28 16:24 | NUR ---
RN NOTES PATIENT GIVEN BED BATH AND CATHETER CARE. PATIENT OPENS EYES, SHOWS NO S/S OF DISTRESS OR DISCOMFORT. WILL CONTINUE TO MONITOR.
--- NOTE | 2023-04-28 18:45 | NUR ---
RN CLOSING NOTES PATIENT SLEEPING IN BED; A/O X 0; HOSPICE CARE, ON 10L VIA FACIAL MASK; NO S/S OF RESPIRATORY DISTRESS; ON TELEMETRY MONITORING SINUS TACH 107;NO SIGNS OF CARDIAC DISTRESS;IV ACCESS SHELDON PICC WITH MORPHINE DRIP 1 MG/HR, INTACT AND PATENT; NUNN CATHETER IN PLACE AND DRAINING WELL; NO DISTRESS, AGITATION OR ANXIETY NOTED. FALL AND SAFETY MEASURES MAINTAINED AT ALL TIMES; BED IN LOW AND LOCKED POSITION; CALL LIGHT WITHIN REACH; SIDE RAILS UP X 2; .WOUND CARE IMPLEMENTED. PATIENT WAS TURNED AND REPOSITIONED PER PROTOCOL.WILL ENDORSE TO COMMERCIAL PRINT SALESMAN NURSE
[2023-04-28] MEDS ORDERED: KEY,NONCONTROL,TO KEEP IN PYXI 1 EA MC ONE (19:00)
--- NOTE | 2023-04-28 19:02 | NUR ---
RN NOTE WITNESSED PREVIOUS BAG WASTED BY ASSIGNED RNFELISA: 77 ML WASTED. FORM SIGNED AND FILED INTO CHART. NEW BAG HUNG AND STARTED.
--- NOTE | 2023-04-28 19:15 | NUR ---
RN NOTE NEW MORPHINE BAG DELIVERED BY PHARMACY, OLD BAG WASTED 77 ML WASTED, WITNESSED BY PARIS Mitchell RN. FORM SIGNED AND FILED INTO CHART. NEW BAG HUNG AND STARTED. RATE AND DOSE CONFIRMED BY PARIS Mitchell RN.
--- NOTE | 2023-04-28 19:35 | NUR ---
WAD PRINTING MACHINE OPERATOR NOTES RECEIVED ON BED ON LEFT SIDE POSITION,DNR STATUS.ON HOSPICE CARE,MORPHINE DRIP INFUSING WELL ON SHELDON PICC LINE AT 1MG PER HOUR RATE VIA WARP HAULER PUMP.APPEARS COMFORTABLE AT THE MOMENT,WITH NUNN CATH IN PLACE,EMPTY AT THE MOMENT.WILL REPOSITION PER PROTOCOL FOR SKIN MANAGEMENT.WILL CONTINUE TO MONITOR STATUS.
[2023-04-28 20:00] VITALS: BP 113/62; TEMP 99.1
--- NOTE | 2023-04-29 06:31 | NUR ---
HOSPICE/MS RN NOTES NO SIGNIFICANT CHANGE IN STATUS.REMAINS CALM,MORPHINE DRIP INCREASED TO 2MG,NOTED VISIBLE PULSATING,VEIN ON TEMPORAL AREA.REPOSITION PER PROTOCOL.OPEN EYES ONCE IN AWHILE.NO DISTRESS.
[2023-04-29 07:00] VITALS: BP 90/48; TEMP 98.5
--- NOTE | 2023-04-29 07:00 | NUR ---
CASER OPENING NOTES RECEIVED PATIENT SLEEPING IN BED; A/0 X 0; NO S/S OF NOTED AT THIS TIME; MORPHINE DRIP WAS AT 1 MG/HR INCREASED TO 2 MG/HR WITNESSED BY SYED RN; ON HOSPICE CARE; TELE SINUS TACHY AT 113 ON FACIAL MASK AT 10L; NO S/S OF RESPIRATORY DISTRESS; IVF ACCESS SHELDON PICC LINE; INTACT, PATENT, AND FLUSHING WELL; ON NUNN CATHETER, IN PLACE AND DRAINING WELL; FALL AND SAFETY MEASURES IN PLACE; BED ALARM ON, BED IN LOW AND LOCK POSITION; CALL LIGHT AND TABLE WITHIN EASY REACH; WILL CONTINUE TO MONITOR
[2023-04-29] MEDS ORDERED: KEY,NONCONTROL,TO KEEP IN PYXI 1 EA MC ONE ×2 (07:24→19:09)
[2023-04-29] MEDS ORDERED: IV NS 0.9% 1,000 ML IV PRN (10:00)
[2023-04-29 16:00] VITALS: BP 74/41; TEMP 97.3
--- NOTE | 2023-04-29 19:20 | NUR ---
RN NOTE I WITNESSED SIRIA ROBERTO, WASTED 74 ML OF MORPHINE FOR MORPHINE DRIP.
--- NOTE | 2023-04-29 19:22 | NUR ---
RN NOTE NEW BAG OF MORPHINE DRIP HUNG, 74 ML WASTED, WITNESSED BY OCTAVIO MEYERS RN.
--- NOTE | 2023-04-29 19:30 | NUR ---
INFRASTRUCTURE SOLUTIONS ARCHITECT OPENING NOTE RECEIVED PATIENT SLEEPING IN BED; A/0 X 0; NO S/S OF PAIN NOTED AT THIS TIME; MORPHINE DRIP AT 2 MG/HR. PT ON HOSPICE CARE, AND TELE MONITORING SINUS TACHY AT 102. ON FACIAL MASK AT 10L. NO S/S OF RESPIRATORY DISTRESS. HAS RIGHT UA PICC LINE, INTACT, PATENT, AND FLUSHING WELL. NUNN CATHETER IN PLACE, DRAINING WELL. FALL AND SAFETY MEASURES IN PLACE: BED ALARM ON, BED IN LOW AND LOCKED POSITION; CALL LIGHT WITHIN EASY REACH, SR UP X2. WILL CONTINUE TO MONITOR PATIENT.
--- NOTE | 2023-04-29 19:34 | NUR ---
RN CLOSING NOTES PATIENT SLEEPING IN BED; A/0 X 0; NO S/S OF NOTED AT THIS TIME; MORPHINE DRIP IS AT 2 MG/HR ; ON HOSPICE CARE; TELE SINUS TACHY AT 107 ON FACIAL MASK AT 10L; NO S/S OF RESPIRATORY DISTRESS; IVF ACCESS SHELDON PICC LINE; INTACT, PATENT, AND FLUSHING WELL; ON NUNN CATHETER, IN PLACE AND DRAINING WELL; FALL AND SAFETY MEASURES MAINTAINED AT ALL TIMES; BED ALARM ON, BED IN LOW AND LOCK POSITION; CALL LIGHT AND TABLE WITHIN EASY REACH; WILL ENDORSE TO THE ENTERTAINMENT DANCER NURSE
[2023-04-29 20:00] VITALS: BP 80/42; TEMP 98.6
--- NOTE | 2023-04-30 05:09 | NUR ---
RN NOTE MORPHINE DRIP INCREASED FROM 2 MG/HR TO 3 MG/HR. DOSAGE CHANGE WITNESS BY SIRIA CROUCH MA.
--- NOTE | 2023-04-30 06:26 | NUR ---
TEAM ASSISTANT CLOSING NOTE LEFT PATIENT SLEEPING IN BED; A/0 X 0; NO S/S OF PAIN NOTED AT THIS TIME; MORPHINE DRIP AT 3 MG/HR. PT ON HOSPICE CARE, AND TELE MONITORING SINUS TACHY AT 101. ON FACIAL MASK AT 10L. NO S/S OF RESPIRATORY DISTRESS. HAS RIGHT UA PICC LINE, INTACT, PATENT, AND FLUSHING WELL. NUNN CATHETER IN PLACE, DRAINING WELL. PT LEFT CLEAN, AND DRY. FALL AND SAFETY MEASURES IN PLACE: BED ALARM ON, BED IN LOW AND LOCKED POSITION; CALL LIGHT WITHIN EASY REACH, SR UP X2. WILL ENDORSE PATIENT TO INCOMING SHIFT NURSE FOR CONTINUITY OF CARE.
[2023-04-30 07:00] VITALS: BP 83/46; TEMP 97.8
--- NOTE | 2023-04-30 07:10 | NUR ---
PERSONAL SERVICE WORKERS OPENING NOTES: RECEIVED PATIENT SLEEPING IN BED; A/0 X0; NO S/S OF PAIN NOTED AT THIS TIME. WITH OXYGEN VIA FACE MASK AT 10LPM. NO S/S OF DISTRESS OR SOB NOTED. PATIENT ON HOSPICE CARE. MORPHINE DRIP AT 3 MG/HR. WITH RIGHT UA PICC LINE, INTACT AND PATENT. NUNN CATHETER IN PLACE, DRAINING WELL. FALL AND SAFETY MEASURES IN PLACE. BED ALARM ON, BED IN LOW AND LOCKED POSITION. CALL LIGHT WITHIN EASY REACH, SIDE RAILS UP X2. WILL CONTINUE WITH PLAN OF CARE.
--- NOTE | 2023-04-30 13:55 | NUR ---
PREDATORY GAME HUNTER NOTE: PATIENT NOTED WITH INCREASED RESPIRATORY EFFORT. MORPHINE DRIP INCREASED FROM 3 MG/HR TO 4 MG/HR. DOSAGE CHANGE WITNESS BY SIRIA JACKMAN.
--- NOTE | 2023-04-30 15:20 | NUR ---
BLACK BELT NOTE: MORPHINE DRIP INCREASED FROM 4 MG/HR TO 5 MG/HR. DOSAGE CHANGE WITNESS BY SIRIA JACKMAN.
[2023-04-30 16:00] VITALS: BP 91/50; TEMP 97.4
--- NOTE | 2023-04-30 18:55 | NUR ---
WIENER PACKER CLOSING NOTES: PATIENT SLEEPING IN BED; A/0 X0; NO S/S OF PAIN NOTED AT THIS TIME. WITH OXYGEN VIA FACE MASK AT 8LPM. NO S/S OF DISTRESS OR SOB NOTED. PATIENT ON HOSPICE CARE. MORPHINE DRIP AT 5 MG/HR. WITH RIGHT UA PICC LINE, INTACT AND PATENT. NUNN CATHETER IN PLACE, DRAINING WELL. FALL AND SAFETY MEASURES IN PLACE. BED ALARM ON, BED IN LOW AND LOCKED POSITION. CALL LIGHT WITHIN EASY REACH, SIDE RAILS UP X2. SCHEDULE MEDICATIONS ADMINISTERED. PATIENT WAS TURNED AND REPOSITIONED. ALL NEEDS ATTENDED. WILL ENDORSE TO NEXT SHIFT.
--- NOTE | 2023-04-30 19:45 | NUR ---
MS RN NOTE CHANGED MORPHINE DRIP AND WASTED WITH PHARMACIST AT THE PHARMACY TO FIX PREVIOUS MORPHINE LOG ISSUES WELL.
--- NOTE | 2023-04-30 20:23 | NUR ---
MS/TELE/RN RECEIVED PATIENT IN BED APPEARS SLEEPING, APPEARS COMFORTABLE, NO SIGNS OF DISTRESS NOTED, MORPHINE DRIP INFUSING. HOSPICE PATIENT. WILL MONITOR.
--- NOTE | 2023-04-30 23:52 | NUR ---
MS/TELE/RN RECEIVED A CALL FROM SOLEDAD PATTERSON, CLAIMING THE GRANDDAUGHTER OF THE PATIENT ASKING FOR INFORMATIONS ABOUT THE PATIENT. I TOLD SOLEDAD TO CALL PRAFUL LUZ, THE PATIENT'S DPOA. PER SOLEDAD HER MOTHER HAS THE TELEPHONE NUMBER OF PRAFUL LUZ. MANAGER TRAFFIC MADE AWARE.
--- NOTE | 2023-05-01 06:09 | NUR ---
MS/TELE/RN PATIENT APPEARS SLEEPING, APPEARS COMFORTABLE, NO SIGNS OF DISTRESS NOTED, MORPHINE DRIP INFUSING VIA MAT LINKER MACHINE, HOB ELEVATED, ALL NEEDS ATTENDED AT THIS TIME, WILL CONTINUE TO MONITOR.
--- NOTE | 2023-05-01 07:13 | NUR ---
MS/TELE/RN ENDORSED TO NEXT RN FOR CONTINUITY OF CARE.
--- NOTE | 2023-05-01 07:15 | NUR ---
RN NOTE- PT FOUND AT THIS TIME. BEGIN PROCESS. CALL PRAFUL LUZ DPHA [phone]. CALLING [facility]
--- NOTE | 2023-05-01 08:06 | NUR ---
RN NOTE- CALLED [facility] CASE # [id number], DR KAHN AWARE.
[2023-05-01] MEDS ORDERED: KEY,NONCONTROL,TO KEEP IN PYXI 1 EA MC ONE (08:14)
--- NOTE | 2023-05-01 08:15 | NUR ---
RN NOTE WITNESSED JAMISON AUSBAND AND WASTED 55ML OF MORPHINE.
--- NOTE | 2023-05-01 08:36 | NUR ---
RN NOTE- PT NUNN, IV AND DRESSINGS REMOVED. PT PLACED IN BODY BAG W TOE TAG PRESENT. MORPHINE DRIP REMOVED AND 55ML WASTED W RN COREY. DOCUMENTATION COMPLETED PER PROTOCOL.
== END 2023-05-02 10:02 | DRG 951 ==
LOC: HOSPICE 20:14
PROVIDERS: ADMIT Internal Medicine; ATTEND Internal Medicine
DX: Z51.5 Encounter for palliative care (principal); E11.00 Type 2 diabetes mellitus with hyperosmolarity without nonketotic hyperglycemic-hyperosmolar coma (NKHHC); A41.9 Sepsis, unspecified organism; E43 Unspecified severe protein-calorie malnutrition; J18.9 Pneumonia, unspecified organism; J96.01 Acute respiratory failure with hypoxia; N17.0 Acute kidney failure with tubular necrosis; G92.8 Other toxic encephalopathy; I63.9 Cerebral infarction, unspecified; I21.A1 Myocardial infarction type 2; N39.0 Urinary tract infection, site not specified; E87.20 Acidosis, unspecified; Z68.1 Body mass index [BMI] 19.9 or less, adult; D64.9 Anemia, unspecified; E86.0 Dehydration; E87.5 Hyperkalemia; E88.09 Other disorders of plasma-protein metabolism, not elsewhere classified; Z66 Do not resuscitate; Z87.891 Personal history of nicotine dependence; N18.9 Chronic kidney disease, unspecified; B96.20 Unspecified Escherichia coli [E. coli] as the cause of diseases classified elsewhere; B96.4 Proteus (mirabilis) (morganii) as the cause of diseases classified elsewhere; E11.65 Type 2 diabetes mellitus with hyperglycemia; Z79.84 Long term (current) use of oral hypoglycemic drugs
CPT/HCPCS: G0378; J2274; J7030; J7060